=== PATIENT | male | born 1985 | race Caucasian/White ===

== ENCOUNTER 2024-04-12 10:30 | Emergency (ER) | payer MEDICAID, SELFPAY ==
[2024-04-12 10:34] VITALS: BP 148/95; PULSE 73; RESP 20; TEMP 36.6; O2SAT 98
--- NOTE | 2024-04-12 10:42 | W.ED.GENAD ---
Discharge Plan Disposition Patient Disposition: Home Condition: Stable Discharge Details Clinical Impression: Cellulitis of left foot Primary Care Provider: Unknown,Unknown ED Provider: Gio Lao Home Meds and New Rx's Prescriptions: New sulfamethoxazole-trimethoprim 800-160 mg tablet 1 tab PO BID 10 Days Qty: 20 0RF Continued insulin lispro 100 unit/mL insulin pen 1 sliding scale dose subcut USEASDIRECTD Levemir FlexPen 100 unit/mL (3 mL) insulin pen 12 unit subcut QHS Discharge Instructions Instructions: Sulfamethoxazole and Trimethoprim, Cellulitis (Skin Infection), Adult ED Additional Instructions: You were seen in the emergency department for the mild wound infection of your left foot, you have normal vital signs and no red streaking up the leg or signs of spreading infection or abscess at this time. I think a reasonable option is to trial antibiotics have sent Bactrim to your pharmacy in [place] to cover staph as well as MRSA. Please take this as directed, monitor your condition, you should begin to improve significantly by day 3 on antibiotics. Keep the wound covered and clean, take Tylenol and ibuprofen for pain as needed. Please return to the emergency department for increasing signs of infection like increasing redness, swelling, drainage of pus from the area, red streaking up the leg, fever. Discharge Data Discharge Date/Time-TO BE ENTERED AT DEPARTURE: 04/12/24 11:01 HPI General Date/Time Provider Initiated Documentation: 04/12/24 10:42. HPI Narrative: 38 year-old male presents to ED today by POV/ambulating with a chief complaint of concern for wound infection from a scratch from his dog on his L foot- noticed a blackened scab at center of the healing scratch with onset for the past week or so. 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 Severity is described as mild. Palliating factors include nothing specific attempted. Provoking factors include nothing specific. Events leading up to the incident/Associated Symptoms: Patient endorses diabetes. Patient not anticoagulated. Related Data Home Medications ?Medication ?Instructions ?Recorded ?Confirmed insulin detemir U-100 100 unit/mL 12 unit subcut QHS 04/12/24 04/12/24 (3 mL) subcutaneous pen (Levemir FlexPen) insulin lispro 100 unit/mL 1 sliding scale dose subcut 04/12/24 04/12/24 subcutaneous pen USEASDIRECTD sulfamethoxazole 800 1 tab PO BID 10 days #20 tabs 04/12/24 mg-trimethoprim 160 mg tablet Previous Rx's ?Medication ?Instructions ?Recorded sulfamethoxazole 800 1 tab PO BID 10 days #20 tabs 04/12/24 mg-trimethoprim 160 mg tablet Allergies Allergy/AdvReac Type Severity Reaction Status Date / Time No Known Allergies Allergy Unverified 04/12/24 10:39 General Stated Complaint: RashLesion HERO: 4 Review of Systems All systems reviewed & are unremarkable except as noted in HPI and below Exam Narrative Exam Narrative: GENERAL APPEARANCE: Well-nourished, non-toxic, awake and alert, atraumatic, no acute distress. SKIN: Warm, pink, dry, intact, small minor scratch to the dorsum of the left foot with central blackened scab, no lymphadenitis or spreading erythema, has chronic scar tissue to this area from old injury, no large fluctuant swelling HEAD: Normocephalic, atraumatic, normal hair distribution for gender/age. EYES: Normal conjunctiva, no exudates on lids/lashes. ENT: Nares patent, no circumoral cyanosis, no facial swelling NECK: Supple, trachea midline, painless cervical ROM. LUNGS/CHEST: Non-labored respirations, normal A/P diameter, symmetrical expansion, no chest wall deformity HEART (CV/PV): Regular rate, dorsalis pedis and posterior tibialis pulses 2+, brisk capillary refill, no peripheral edema, no JVD. ABDOMEN: Soft, non-distended, no guarding. MSK: Normal ROM, no swelling/deformity to bilateral UEs or LEs, moving all extremities without weakness, no cyanosis, spine midline without tenderness, normal curvature. NEURO: Mental Status AAOx4 - alert to person, place, time, events No facial droop, no forehead involvement. Motor: No focal weakness - strength 5/5 in bilateral UEs and LEs, proximal and distal, symmetric. Sensory: sensation intact to light touch globally. Gait normal: patient ambulated without ataxia into ED room. PSYCH: euthymic, cooperative, pleasant, appropriate speech Course Vital Signs Vital signs: Vital Signs Temperature 36.6 C 04/12/24 10:34 Pulse 73 04/12/24 10:34 Respiratory Rate 20 04/12/24 10:34 Blood Pressure 148/95 H 04/12/24 10:34 Pulse Oximetry 98 04/12/24 10:34 Temperature 36.6 C 04/12/24 10:34 Pulse 73 04/12/24 10:34 Respiratory Rate 20 04/12/24 10:34 Respiratory Effort Normal 04/12/24 10:38 Blood Pressure 148/95 H 04/12/24 10:34 Pulse Oximetry 98 04/12/24 10:34 Medical Decision Making This dictation utilizes [id number] dictation software and may contain unedited grammatical errors. 38 year-old male presents to ED today by POV/ambulating with a chief complaint of concern for wound infection from a scratch from his dog on his L foot- noticed a blackened scab at center of the healing scratch with onset for the past week or so. 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 Severity is described as mild. Palliating factors include nothing specific attempted. Provoking factors include nothing specific. Events leading up to the incident/Associated Symptoms: Patient endorses diabetes. Patients' medical history: Diabetes mellitus. Family and social history: Noncontributory. Pertinent exam findings / vital signs include minor scab to the central dorsal left foot, no spreading erythema or large fluctuant swelling, no lymphadenitis, no purulent drainage, afebrile and nontoxic. Differential / pathologies of concern include healing scratch with some abnormal appearing scab versus mild cellulitis, do not suspect sepsis. Diagnostic studies of: -None. Interventions of: -Outpatient prescription for Bactrim. 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 Findings not consistent with sepsis, abscess. Disposition of Cellulitis of Left Foot. Patient verbalized understanding of the plan and return to ED criteria and engaged in shared decision making. Medical Records Medical records reviewed: Yes I reviewed the patient's medical records. Quality:[facility] Health Related Social Needs: No Data to Display PFSH All Active Problems (Updated 04/12/24 @ 10:53 by ANNA Zavaleta) Cellulitis of left foot (Acute) Social History Smoking risk assessment performed?: No
== END 2024-04-12 11:01 | disposition home or self-care (01) ==
LOC: ER 11:18
PROVIDERS: Emergency Provider Physician Assistant
DX: L03.116 Cellulitis of left lower limb (principal); E11.9 Type 2 diabetes mellitus without complications; Z79.4 Long term (current) use of insulin
CPT/HCPCS: 99283

== ENCOUNTER 2024-06-04 10:33 | Inpatient (IN) | payer MEDICAID, SELFPAY ==
[2024-06-04] VITALS (31 sets, daily range): BP systolic 98–140; BP diastolic 73–96; PULSE 46–115; RESP 14–45; TEMP 36.2–37; O2SAT 96–100
--- NOTE | 2024-06-04 10:45 | DI.RAD_ITS ---
Exam(s) XR PORTABLE CHEST AP EXAM: XR PORTABLE CHEST AP CLINICAL HISTORY: sob TECHNIQUE: 2D digital imaging was performed. COMPARISON: No exams were available for comparison FINDINGS: LUNGS: Clear. No pleural abnormality seen. HEART: Normal size. AORTA: Normal diameter. BONES: Mild scoliosis. Soft tissues: Unremarkable. IMPRESSION: No acute findings. DATA REPOSITORY: RADIATION DOSE DELIVERED:
--- NOTE | 2024-06-04 10:59 | W.ED.GENAD ---
Discharge Plan Disposition Patient Disposition: Admit to [facility] Condition: Fair Discharge Details Chief Complaint: GenMedical Clinical Impression: DKA (diabetic ketoacidosis), COVID, Vomiting Admit Date/Time: 06/04/24 12:12 Admit Provider: Carter Zapata Attending Provider: Carter Zapata Primary Care Provider: Unknown,Unknown ED Provider: Rui Casey [facility] General Date/Time Provider Initiated Documentation: 06/04/24 10:41. Limitations to Documentation: no limitations. Information obtained by: patient and family. HPI Narrative: 38-year-old gentleman with past medical history of diabetes, insulin-dependent, presents for evaluation of vomiting body aches shortness of breath. Reports the symptoms have been ongoing for the last 4 to 5 days. He reports that his dad got sick with similar symptoms and tested positive for COVID. Patient got sick 2 days after his dad. Dad is currently finishing Paxlovid prescription. The patient did not test for COVID. He reports that he has not been able to eat for the last 5 days and has had persistent vomiting. He has not been checking his blood sugar or taking insulin because he is not eating. Reports dry cough, nonproductive. Unknown fever denies any other medical problems Related Data Home Medications ?Medication ?Instructions ?Recorded ?Confirmed insulin detemir U-100 100 unit/mL 12 unit subcut QHS 04/12/24 06/04/24 (3 mL) subcutaneous pen (Levemir FlexPen) insulin lispro 100 unit/mL 1 sliding scale dose subcut 04/12/24 06/04/24 subcutaneous pen USEASDIRECTD Allergies Allergy/AdvReac Type Severity Reaction Status Date / Time No Known Allergies Allergy Unverified 06/04/24 10:43 General Stated Complaint: GenMedical HERO: 3 Exam Narrative Exam Narrative: Review of Systems: All systems reviewed & are unremarkable except as noted in HPI and below Cachectic Tachycardic Mild tachypnea, clear breath sounds bilaterally, no hypoxia Nondistended abdomen soft nontender Extremities w/o edema Course Vital Signs Vital signs: Vital Signs Temperature 36.2 C L 06/04/24 10:38 Pulse 115 H 06/04/24 10:38 Respiratory Rate 18 06/04/24 10:38 Blood Pressure 140/89 06/04/24 10:38 Pulse Oximetry 97 06/04/24 10:38 Temperature 36.2 C L 06/04/24 10:38 Pulse 115 H 06/04/24 10:38 Respiratory Rate 18 06/04/24 10:38 Respiratory Effort Normal, Non-Labored, Short of Breath 06/04/24 10:41 Blood Pressure 140/89 06/04/24 10:38 Blood Pressure Position Sitting 06/04/24 10:38 Pulse Oximetry 97 06/04/24 10:38 Oxygen Delivery Method Room Air 06/04/24 10:38 Oxygen Flow Rate 0 06/04/24 10:38 Pain Level 2 06/04/24 10:38 Medical Decision Making Emergent evaluation of multiple sick symptoms. He is a very unwell appearing person. Initial differential includes COVID, DKA, pneumonia. Although the patient is tachypneic, I am more concerned this might be [place] versus having a respiratory infection. His dad is positive for COVID, we will run a COVID test today for the patient. Will check lab work, electrolytes, give IV fluids and monitor closely. Lab work reviewed. No leukocytosis or anemia. Significant electrolyte derangement concerning for DKA. pH is 7.02. There is an anion gap of 28. CO2 is 9. Patient is hyperglycemic. He has been given 1 L of IV fluids. His potassium is on the higher side. Will start insulin infusion. COVID test is positive. Chest x-ray reviewed and independently interpreted: No consolidative process. Patient will be admitted to the hospital for management of severe DKA Quality:[facility] Health Related Social Needs: No Data to Display Critical Care Time Critical Care Time Critical Care Time: Yes Total Critical Care Time: 36 Attestation: CRITICAL CARE Upon my evaluation, this patient had a high probability of imminent or life-threatening deterioration due to diabetic ketoacidosis which required my direct attention, intervention, and personal management. I have personally provided 36 minutes of critical care time exclusive of time spent on separately billable procedures. Time includes review of laboratory data, radiology results, discussion with consultants, and monitoring for potential decompensation. Interventions were performed as documented above [facility] All Active Problems (Updated 06/04/24 @ 13:45 by Rui Casey MD) Vomiting (Acute) COVID (Acute) DKA (diabetic ketoacidosis) (Acute) Social History Smoking/Tobacco Use Status: Never Smoking risk assessment performed?: Yes Alcohol Intake: never Drug use: Socially Substance use type: marijuana Housing: house Do you feel safe at home: Yes Do you feel safe in your relationship?: Yes
[2024-06-04 11:15] LABS: BE (Venous) -24 mmol/L (-2-3); HCO3 (Venous) 7 mmol/L (23-28); O2 Sat (Venous) 85 %; TCO2 (Venous) 7 mmol/L (24-29); pCO2 (Venous) 27 mmHg (41-51); pO2 (Venous) 57 mmHg
[2024-06-04 11:16] LABS: pH (Venous) 7.02 (7.31-7.41)
[2024-06-04 11:17] LABS: Abs Immature Grans 0.03 10^3/uL (0.0-0.06); Absolute Basophil Count 0.04 10^3/uL (0.0-0.2); Absolute Lymphocyte Count 1.12 10^3/uL (1.2-3.4); Absolute Monocyte Count 0.36 10^3/uL (0.1-0.8); Absolute Neutrophil Count 4.06 10^3/uL (1.2-6.7); Basophils % 0.7 %; HCT 54.6 % (40.0-50.0); HGB 17.4 g/dL (13.5-17.5); Immature Grans % 0.5 %; MCH 29.7 pg (27.0-33.0); MCHC 31.9 % (32.0-36.0); MCV 93 fL (80-95); MPV 10.7 fL (8.0-11.0); Monocytes % 6.4 %; Neutrophils % 72.4 %; Platelet Count 174 10^3/uL (130-400); RBC 5.86 10^6/uL (4.36-5.78); RDW-SD 41.9 fL; WBC 5.61 10^3/uL (4.4-10.8)
[2024-06-04] MEDS: Ondansetron 4 MG/2 ML VIAL IVP (11:20)
[2024-06-04] MEDS: Normal Saline 1,000 ML 1000 ML IV (11:21)
[2024-06-04 11:56] LABS: ALT 75 U/L (16-63); AST 29 U/L (15-37); Albumin 4.3 g/dL (3.4-5.0); Alkaline Phosphatase 89 U/L (46-116); BUN 26 mg/dL (7-18); Bilirubin, Total 0.37 mg/dL (0.2-1.0); CREATININE 1.7 mg/dL (0.70-1.30); Chloride 97 mmol/L (98-107); Estimated GFR 52.59 (mL/min/1.73m2); Glucose 479 mg/dL (74-106); Lipase 10 U/L (<78); Magnesium 1.8 mg/dL (1.8-2.4); Potassium 5.2 mmol/L (3.5-5.1); Sodium 134 mmol/L (136-145); Total Protein 8.4 g/dL (6.4-8.2)
--- NOTE | 2024-06-04 12:13 | HPE_ITS ---
Date of service: 06/04/24 Time of Service: 12:13 Assessment and Plan Assessment and plan (1) DKA (diabetic ketoacidosis): Status: Acute Assessment and plan: - Secondary to COVID gastritis with poor p.o. intake, vomiting and not using his insulin -Initial blood glucose above 470 with an anion gap of 26 -Started on DKA protocol with initial fluids of normal saline at 125 mL an hour; will change to potassium containing and or glucose containing fluids based on improvement and anion gap, potassium and glucose levels -Once patient's anion gap is closed we will initiate long-acting insulin bolus 1 hour prior to discontinuing insulin drip (2) COVID: Status: Acute Assessment and plan: - Tested positive on admission on 06/04/2024 -While patient is short of breath he is not hypoxic therefore does not meet criteria for inpatient treatment at this time -Continue to monitor patient's oxygen requirements, and will initiate treatment if needed History of Present Illness History of Present Illness Chief Complaint: body aches, SOB Narrative: 38-year-old male with a past medical history of late onset type 1 diabetes who presents emergency department complaints of vomiting, body aches and shortness of breath. Patient states that he has had bodyaches and worsening shortness of breath over the last 4 to 5 days, and that his stepfather was diagnosed with COVID about 5 days ago. Since that time, patient states he has also had significant decrease in p.o. intake due to persistent vomiting he has not been checking his blood sugars or taking his insulin because he was not eating. He reports having a dry cough that has been nonproductive, but denies any fever, headache, lightheadedness, dizziness, chest pain, diarrhea or constipation. In the emergency department the patient was noted as being tachycardic with otherwise normal vital signs. He had CBC that was within normal limits but CMP showed an initial blood glucose level of 479 with an anion gap of 26, and a VBG that showed a pH of 7.02, pCO2 of 27. Additionally, patient tested positive for COVID-19. Patient was started on a DKA protocol and emergency room physician paged hospitalist for admission for patient with COVID-19 resulting in viral gastritis leading to poor p.o. intake, and ultimately DKA. Review of Systems All systems reviewed & are unremarkable except as noted in HPI and below PFSH All Active Problems (Updated 06/04/24 @ 13:45 by Rui Casey MD) Vomiting (Acute) COVID (Acute) DKA (diabetic ketoacidosis) (Acute) Social History Smoking/Tobacco Use Status: Never Smoking risk assessment performed?: Yes Alcohol Intake: never Drug use: Socially Substance use type: marijuana Housing: house Do you feel safe at home: Yes Do you feel safe in your relationship?: Yes Meds Allergies and Home Medications Allergies Allergy/AdvReac Type Severity Reaction Status Date / Time No Known Allergies Allergy Unverified 06/04/24 10:43 Home Medications ?Medication ?Instructions ?Recorded ?Confirmed ?Type insulin detemir U-100 100 unit/mL 12 unit subcut QHS 04/12/24 06/04/24 History (3 mL) subcutaneous pen (Levemir FlexPen) insulin lispro 100 unit/mL 1 sliding scale dose subcut 04/12/24 06/04/24 History subcutaneous pen USEASDIRECTD Exam Narrative Exam Narrative: Well-appearing young gentleman laying in bed in no acute distress, ANO x 4, heart regular rhythm though intermittently tachycardic, lungs clear to auscultation bilaterally, abdomen soft, nontender, nondistended Results Labs 06/04/24 11:07 06/04/24 14:18 Labs: Laboratory Results - last 24 hr 06/04/24 06/04/24 06/04/24 11:07 11:10 11:27 WBC 5.61 RBC 5.86 H Hgb 17.4 Hct 54.6 H MCV 93 MCH 29.7 MCHC 31.9 L RDW 12.0 Plt Count 174 MPV 10.7 Immature Gran % 0.5 Neutrophils % 72.4 Lymphocytes % 20.0 Monocytes % 6.4 Eosinophils % 0.0 Basophils % 0.7 Nucleated RBC % 0.0 Absolute Neutrophils 4.06 Absolute Lymphocytes 1.12 L Absolute Monocytes 0.36 Absolute Eosinophils 0.00 Absolute Basophils 0.04 VBG pH 7.02 L* VBG pCO2 27 L VBG pO2 57 VBG HCO3 7 L VBG Total CO2 7 L VBG O2 Saturation 85 VBG Base Excess -24 L Sodium Cancelled 134 L Potassium Cancelled 5.2 H Chloride Cancelled 97 L Carbon Dioxide Cancelled 9.0 L Anion Gap Cancelled 28.0 H BUN Cancelled 26 H Creatinine Cancelled 1.7 H Est GFR (CKD-EPI 2020) Cancelled 52.59 Glucose Cancelled 479 H Calcium Cancelled Magnesium Cancelled 1.8 Total Bilirubin Cancelled 0.37 AST Cancelled 29 ALT Cancelled 75 H Alkaline Phosphatase Cancelled 89 Total Protein Cancelled 8.4 H Albumin Cancelled 4.3 Lipase Cancelled 10 Last Vital Signs Temp 98 F 06/04/24 11:43 Pulse 58 L 06/04/24 12:01 Resp 19 06/04/24 12:01 BP 124/78 06/04/24 12:01 Pulse Ox 100 06/04/24 12:01 Time Spent Time spent with Patient: >75 minutes Time was spent: preparing to see the patient(eg.review tests), obtaining and/or reviewing separately otained hiistory, ordering medications,tests, procedures, referring, communicating with other health intensive care unit nurse, indepentently interpreting results, counseling the patient and care coordination
[2024-06-04 12:17] LABS: Calcium 9.5 mg/dL (8.5-10.1)
[2024-06-04] MEDS: INSULIN REGULAR IN 0.9 % NACL 100 UNIT/100 ML BAG 6 UNIT IVINF (12:26)
[2024-06-04 12:36] LABS: Bilirubin Negative (Negative); Blood Trace-intact (Negative); Clarity Clear (Clear); Glucose 500 mg/dL (Negative); Ketones >=160 mg/dL (Negative); Leukocyte Esterase Negative (Negative); Nitrite Negative (Negative); Specific Gravity >= 1.030 (1.005-1.025); Urobilinogen 0.2 mg/dL (Up to 0.2); pH 5.5 (5-8)
--- NOTE | 2024-06-04 12:40 | W.PC.ACHO ---
Registration Status: Primary Language: Preferred Language: ED Information & Data Chief Complaint GenMedical 06/04/24 11:04 Triage Note patient here with covid, 06/04/24 10:38 family member just getting done with it and is on paxlovid. patient's sx are as follows - SOB, fever, chills, n/v/d, fatigue, achy body. Needs PCP. Doesn't really have a cough. Unsure if type 1 or 2 IDDM - has dynamometer tester trying to figure it out. Most Recent Vital Signs Temperature 36.6 C 06/04/24 11:43 Temperature Source Oral 06/04/24 11:43 Pulse 58 L 06/04/24 12:01 Pulse 63 06/04/24 12:01 Respiratory Rate 19 06/04/24 12:01 Respiratory Effort Non-Labored 06/04/24 11:41 Respiratory Depth Shallow 06/04/24 11:41 Respiratory Pattern Tachypnea 06/04/24 11:41 Blood Pressure 124/78 06/04/24 12:01 Blood Pressure Mean 91 06/04/24 12:01 Blood Pressure Position Sitting 06/04/24 10:38 Pulse Oximetry 100 06/04/24 12:01 Oxygen Delivery Method Room Air 06/04/24 10:38 Oxygen Flow Rate 0 06/04/24 10:38 Pain Level 2 06/04/24 10:38 Allergies No Known Allergies Allergy (Unverified 06/04/24 10:43) Precautions Isolation PUI 06/04/24 10:41 Active Medications Generic Name Dose Route Start Last Admin Trade Name Freq PRN Reason Stop Dose Admin Insulin Human Regular 100 unit in 100 mls @ 6 mls/hr 06/04/24 12:15 06/04/24 12:26 Myxredlin IVINF 6 unit/hr INFUSION MARIA EUGENIA 6 mls/hr Administration Protocol 6 UNIT/HR IV IV Catheter Type [Right Saline Lock Antecubital] IV Catheter Gauge [Right 20 Antecubital] Diagnostics 06/04/24 06/04/24 06/04/24 Range/Units 22:15 20:15 18:15 WBC (4.4-10.8) 10^3/uL RBC (4.36-5.78) 10^6/uL Hgb (13.5-17.5) g/dL Hct (40.0-50.0) % MCV (80-95) fL MCH (27.0-33.0) pg MCHC (32.0-36.0) % RDW (11.8-14.1) % Plt Count (130-400) 10^3/uL MPV (8.0-11.0) fL Immature Gran % % Neutrophils % % Lymphocytes % % Monocytes % % Eosinophils % % Basophils % % Nucleated RBC % (0.0-0.3) % Absolute Neutrophils (1.2-6.7) 10^3/uL Absolute Lymphocytes (1.2-3.4) 10^3/uL Absolute Monocytes (0.1-0.8) 10^3/uL Absolute Eosinophils (0.0-0.7) 10^3/uL Absolute Basophils (0.0-0.2) 10^3/uL VBG pH (7.31-7.41) VBG pCO2 (41-51) mmHg VBG pO2 mmHg VBG HCO3 (23-28) mmol/L VBG Total CO2 (24-29) mmol/L VBG O2 Saturation % VBG Base Excess (-2-3) mmol/L Sodium Pending Pending Pending Potassium Pending Pending Pending Chloride Pending Pending Pending Carbon Dioxide Pending Pending Pending Anion Gap Pending Pending Pending BUN Pending Pending Pending Creatinine Pending Pending Pending Est GFR (CKD-EPI 2020) Pending Pending Pending Glucose Pending Pending Pending Calcium Pending Pending Pending Magnesium Total Bilirubin AST ALT Alkaline Phosphatase Total Protein Albumin Lipase Urine Color Urine Clarity Urine pH Ur Specific [place] Urine Protein Urine Ketones Urine Blood Urine Nitrite Urine Bilirubin Urine Urobilinogen Ur Leukocyte Esterase Urine Glucose 06/04/24 06/04/24 06/04/24 Range/Units 16:15 14:15 12:20 WBC (4.4-10.8) 10^3/uL RBC (4.36-5.78) 10^6/uL Hgb (13.5-17.5) g/dL Hct (40.0-50.0) % MCV (80-95) fL MCH (27.0-33.0) pg MCHC (32.0-36.0) % RDW (11.8-14.1) % Plt Count (130-400) 10^3/uL MPV (8.0-11.0) fL Immature Gran % % Neutrophils % % Lymphocytes % % Monocytes % % Eosinophils % % Basophils % % Nucleated RBC % (0.0-0.3) % Absolute Neutrophils (1.2-6.7) 10^3/uL Absolute Lymphocytes (1.2-3.4) 10^3/uL Absolute Monocytes (0.1-0.8) 10^3/uL Absolute Eosinophils (0.0-0.7) 10^3/uL Absolute Basophils (0.0-0.2) 10^3/uL VBG pH (7.31-7.41) VBG pCO2 (41-51) mmHg VBG pO2 mmHg VBG HCO3 (23-28) mmol/L VBG Total CO2 (24-29) mmol/L VBG O2 Saturation % VBG Base Excess (-2-3) mmol/L Sodium Pending Pending Potassium Pending Pending Chloride Pending Pending Carbon Dioxide Pending Pending Anion Gap Pending Pending BUN Pending Pending Creatinine Pending Pending Est GFR (CKD-EPI 2020) Pending Pending Glucose Pending Pending Calcium Pending Pending Magnesium Total Bilirubin AST ALT Alkaline Phosphatase Total Protein Albumin Lipase Urine Color Pending Urine Clarity Pending Urine pH Pending Ur Specific [place] Pending Urine Protein Pending Urine Ketones Pending Urine Blood Pending Urine Nitrite Pending Urine Bilirubin Pending Urine Urobilinogen Pending Ur Leukocyte Esterase Pending Urine Glucose Pending 06/04/24 06/04/24 06/04/24 Range/Units 12:15 11:27 11:10 WBC (4.4-10.8) 10^3/uL RBC (4.36-5.78) 10^6/uL Hgb (13.5-17.5) g/dL Hct (40.0-50.0) % MCV (80-95) fL MCH (27.0-33.0) pg MCHC (32.0-36.0) % RDW (11.8-14.1) % Plt Count (130-400) 10^3/uL MPV (8.0-11.0) fL Immature Gran % % Neutrophils % % Lymphocytes % % Monocytes % % Eosinophils % % Basophils % % Nucleated RBC % (0.0-0.3) % Absolute Neutrophils (1.2-6.7) 10^3/uL Absolute Lymphocytes (1.2-3.4) 10^3/uL Absolute Monocytes (0.1-0.8) 10^3/uL Absolute Eosinophils (0.0-0.7) 10^3/uL Absolute Basophils (0.0-0.2) 10^3/uL VBG pH 7.02 L* (7.31-7.41) VBG pCO2 27 L (41-51) mmHg VBG pO2 57 mmHg VBG HCO3 7 L (23-28) mmol/L VBG Total CO2 7 L (24-29) mmol/L VBG O2 Saturation 85 % VBG Base Excess -24 L (-2-3) mmol/L Sodium Pending 134 L Cancelled Potassium Pending 5.2 H Cancelled Chloride Pending 97 L Cancelled Carbon Dioxide Pending 9.0 L Cancelled Anion Gap Pending 28.0 H Cancelled BUN Pending 26 H Cancelled Creatinine Pending 1.7 H Cancelled Est GFR (CKD-EPI 2020) Pending 52.59 Cancelled Glucose Pending 479 H Cancelled Calcium Pending 9.5 Cancelled Magnesium 1.8 Cancelled Total Bilirubin 0.37 Cancelled AST 29 Cancelled ALT 75 H Cancelled Alkaline Phosphatase 89 Cancelled Total Protein 8.4 H Cancelled Albumin 4.3 Cancelled Lipase 10 Cancelled Urine Color Urine Clarity Urine pH Ur Specific [place] Urine Protein Urine Ketones Urine Blood Urine Nitrite Urine Bilirubin Urine Urobilinogen Ur Leukocyte Esterase Urine Glucose 06/04/24 Range/Units 11:07 WBC 5.61 (4.4-10.8) 10^3/uL RBC 5.86 H (4.36-5.78) 10^6/uL Hgb 17.4 (13.5-17.5) g/dL Hct 54.6 H (40.0-50.0) % MCV 93 (80-95) fL MCH 29.7 (27.0-33.0) pg MCHC 31.9 L (32.0-36.0) % RDW 12.0 (11.8-14.1) % Plt Count 174 (130-400) 10^3/uL MPV 10.7 (8.0-11.0) fL Immature Gran % 0.5 % Neutrophils % 72.4 % Lymphocytes % 20.0 % Monocytes % 6.4 % Eosinophils % 0.0 % Basophils % 0.7 % Nucleated RBC % 0.0 (0.0-0.3) % Absolute Neutrophils 4.06 (1.2-6.7) 10^3/uL Absolute Lymphocytes 1.12 L (1.2-3.4) 10^3/uL Absolute Monocytes 0.36 (0.1-0.8) 10^3/uL Absolute Eosinophils 0.00 (0.0-0.7) 10^3/uL Absolute Basophils 0.04 (0.0-0.2) 10^3/uL VBG pH (7.31-7.41) VBG pCO2 (41-51) mmHg VBG pO2 mmHg VBG HCO3 (23-28) mmol/L VBG Total CO2 (24-29) mmol/L VBG O2 Saturation % VBG Base Excess (-2-3) mmol/L Sodium Potassium Chloride Carbon Dioxide Anion Gap BUN Creatinine Est GFR (CKD-EPI 2020) Glucose Calcium Magnesium Total Bilirubin AST ALT Alkaline Phosphatase Total Protein Albumin Lipase Urine Color Urine Clarity Urine pH Ur Specific [place] Urine Protein Urine Ketones Urine Blood Urine Nitrite Urine Bilirubin Urine Urobilinogen Ur Leukocyte Esterase Urine Glucose [id number] Documentation Fingerstick Glucose Start: 06/04/24 10:51 Freq: .Stat Status: Active Protocol: Activity Type Activity Date Activity User E-sign Co-sign Detail Recorded Client Recorded Date Recorded By Document 06/04/24 11:34 BKG DAEMON(3) [id number] 06/04/24 11:35 BKG DAEMON(4) Intake and Output - 24 Hour Total 06/04/24 10:33 thru 06/04/24 12:27 Intake Total 1010 Balance 1010 Weight 58.967 kg Intake: IV 1010 Falls Risk Assessment History of Falls No History 06/04/24 10:41 Contributing Factors No Factors 06/04/24 10:41 Ambulatory Aids Independent 06/04/24 10:41 Tubes/Lines None 06/04/24 10:41 Gait Evaluation No gait disturbance 06/04/24 10:41 Cognition No cognitive impairment 06/04/24 10:41 Fall Total Score 0 06/04/24 10:41 Level of Risk Standard/Low Risk 06/04/24 10:41 v v v v v v v v v Sending and/or Receiving Nurses: Please use comment section below to note any information pertinent to the patient hand-off not included above. Information / Comments: Report received from: AUSTIN Tenorio
[2024-06-04 13:12] LABS: Bacteria Negative HPF (Negative); C & S Indicated? No; Casts Negative LPF (Negative); Crystals Negative HPF (Negative); Epithelial Cells Negative HPF (Negative); Mucus Negative (Negative); Other Cells Negative (Negative); RBC 0-2 HPF (0-2); WBC Negative HPF (0-5)
[2024-06-04 13:48] LABS: Anion Gap 24.2 mmol/L (3-11); BUN 26 mg/dL (7-18); CO2 10.8 mmol/L (21.0-32.0); CREATININE 1.6 mg/dL (0.70-1.30); Calcium 8.7 mg/dL (8.5-10.1); Chloride 100 mmol/L (98-107); Estimated GFR 56.56 (mL/min/1.73m2); Glucose 397 mg/dL (74-106); Potassium 4.8 mmol/L (3.5-5.1); Sodium 135 mmol/L (136-145)
[2024-06-04 14:15] LABS: *AMPHETAMINES SCREEN URINE Negative (Negative); *BARBITURATES SCREEN URINE Negative (Negative); *BENZODIAZEPINES SCREEN URINE Negative (Negative); Cocaine Screen,Urine Negative (Negative); METHADONE URINE SCREEN Negative (Negative)
[2024-06-04] MEDS: Normal Saline 1,000 ML 125 ML IV (14:21)
[2024-06-04 14:24] LABS: Cannabinoids THC Positive (Negative); OPIATES URINE SCREEN Negative (Negative); Tricyclic Antidepressants Negative (Negative)
[2024-06-04 14:40] LABS: Anion Gap 20.4 mmol/L (3-11); BUN 26 mg/dL (7-18); CO2 13.6 mmol/L (21.0-32.0); CREATININE 1.5 mg/dL (0.70-1.30); Calcium 8.9 mg/dL (8.5-10.1); Chloride 101 mmol/L (98-107); Estimated GFR 61.11 (mL/min/1.73m2); Glucose 346 mg/dL (74-106); Potassium 4.8 mmol/L (3.5-5.1); Sodium 135 mmol/L (136-145)
[2024-06-04 16:49] LABS: Anion Gap 16.2 mmol/L (3-11); BUN 23 mg/dL (7-18); CO2 16.8 mmol/L (21.0-32.0); CREATININE 1.3 mg/dL (0.70-1.30); Calcium 8.4 mg/dL (8.5-10.1); Chloride 103 mmol/L (98-107); Estimated GFR 72.56 (mL/min/1.73m2); Glucose 278 mg/dL (74-106); Potassium 4.8 mmol/L (3.5-5.1); Sodium 136 mmol/L (136-145)
[2024-06-04 18:17] LABS: BUN 21 mg/dL (7-18); CREATININE 1.4 mg/dL (0.70-1.30); Calcium 8.6 mg/dL (8.5-10.1); Chloride 104 mmol/L (98-107); Estimated GFR 66.39 (mL/min/1.73m2); Glucose 212 mg/dL (74-106); Potassium 4.1 mmol/L (3.5-5.1); Sodium 135 mmol/L (136-145)
[2024-06-04] MEDS: Normal Saline Flush 10 ML SYR IVP (20:11)
[2024-06-04] MEDS: DEXTROSE 5%-0.9% SALINE 1,000 ML 125 ML IV (20:11)
[2024-06-04] MEDS: MAGNESIUM SULFATE 2 GM/50 ML BAG IV_INF (20:11)
[2024-06-04 20:33] LABS: Anion Gap 10.3 mmol/L (3-11); BUN 21 mg/dL (7-18); CO2 20.7 mmol/L (21.0-32.0); CREATININE 1.3 mg/dL (0.70-1.30); Calcium 8.7 mg/dL (8.5-10.1); Chloride 105 mmol/L (98-107); Estimated GFR 72.56 (mL/min/1.73m2); Glucose 151 mg/dL (74-106); Potassium 4.4 mmol/L (3.5-5.1); Sodium 136 mmol/L (136-145)
[2024-06-04 22:35] LABS: Anion Gap 10.4 mmol/L (3-11); BUN 19 mg/dL (7-18); CO2 19.6 mmol/L (21.0-32.0); CREATININE 1.2 mg/dL (0.70-1.30); Calcium 8.4 mg/dL (8.5-10.1); Chloride 108 mmol/L (98-107); Estimated GFR 79.88 (mL/min/1.73m2); Glucose 147 mg/dL (74-106); Potassium 3.7 mmol/L (3.5-5.1); Sodium 138 mmol/L (136-145)
[2024-06-05] VITALS (15 sets, daily range): BP systolic 99–108; BP diastolic 68–80; PULSE 56–85; RESP 9–24; TEMP 37–37.5; O2SAT 96–100
[2024-06-05 00:46] LABS: Anion Gap 8.1 mmol/L (3-11); BUN 19 mg/dL (7-18); CO2 20.9 mmol/L (21.0-32.0); CREATININE 1.2 mg/dL (0.70-1.30); Calcium 8.2 mg/dL (8.5-10.1); Chloride 109 mmol/L (98-107); Estimated GFR 79.88 (mL/min/1.73m2); Glucose 103 mg/dL (74-106); Potassium 3.5 mmol/L (3.5-5.1); Sodium 138 mmol/L (136-145)
[2024-06-05] MEDS: POTASSIUM CHLORIDE 20 MEQ/100 ML BAG 50 MEQ IV_INF (01:55)
[2024-06-05] MEDS: Dextrose 50%-Water 25 GM/50 ML SYR ×2 (02:08→02:14)
[2024-06-05 02:37] LABS: Anion Gap 8.8 mmol/L (3-11); BUN 18 mg/dL (7-18); CO2 21.2 mmol/L (21.0-32.0); CREATININE 1.2 mg/dL (0.70-1.30); Calcium 8.3 mg/dL (8.5-10.1); Chloride 110 mmol/L (98-107); Estimated GFR 79.88 (mL/min/1.73m2); Glucose 74 mg/dL (74-106); Potassium 3.4 mmol/L (3.5-5.1); Sodium 140 mmol/L (136-145)
[2024-06-05] MEDS: DEXTROSE 5%-0.9% SALINE 1,000 ML 250 ML IV (03:42)
[2024-06-05 04:32] LABS: Anion Gap 8.9 mmol/L (3-11); BUN 18 mg/dL (7-18); CO2 21.1 mmol/L (21.0-32.0); CREATININE 1.2 mg/dL (0.70-1.30); Calcium 8.3 mg/dL (8.5-10.1); Chloride 108 mmol/L (98-107); Estimated GFR 79.88 (mL/min/1.73m2); Glucose 201 mg/dL (74-106); Potassium 4.4 mmol/L (3.5-5.1); Sodium 138 mmol/L (136-145)
[2024-06-05 06:24] LABS: BE (Venous) -7 mmol/L (-2-3); HCO3 (Venous) 19 mmol/L (23-28); O2 Sat (Venous) 99 %; TCO2 (Venous) 18 mmol/L (24-29); pCO2 (Venous) 36 mmHg (41-51); pH (Venous) 7.33 (7.31-7.41); pO2 (Venous) 99 mmHg
[2024-06-05 06:38] LABS: Anion Gap 10.6 mmol/L (3-11); BUN 16 mg/dL (7-18); CO2 20.4 mmol/L (21.0-32.0); CREATININE 1.1 mg/dL (0.70-1.30); Calcium 8.2 mg/dL (8.5-10.1); Chloride 109 mmol/L (98-107); Estimated GFR 88.67 (mL/min/1.73m2); Glucose 221 mg/dL (74-106); Potassium 3.5 mmol/L (3.5-5.1); Sodium 140 mmol/L (136-145)
[2024-06-05] MEDS: Insulin Aspart 300 UNITS/3 ML PEN SC ×3 (08:56→17:30)
--- NOTE | 2024-06-05 08:56 | INITIAL_ITS ---
Date of service: 06/05/24 Time of Service: 08:56 Care Management Initial Assmt Initial Assessment Reason for Hospitalization: DKA Functional Status/Living Situation Patient Presentation: CM did not meet with Jam due to covid restrictions. CM spoke to his primary RN who stated that he is doing well and may be ready for discharge today, per MD. Jam does not have a local PCP currently, as he moved to the area recently. CM will coordinate a hospital follow up appointment with the provider who was order control clerk blood bank when he arrived at the ED, which is in the practice of [facility] (Dr. Pedroza). Per report, he is independent at baseline. CM will continue to follow. Town of Residence: [place] Resides with: Parent Significant Other/Family: [facility] Employment Status: Employed Instrumental Activities of Daily Living (ADLs): Independent Medications Medication Management: No Issues/Barriers identified Advance Directives Advance Directives: Do you have an Advance Directive: N 06/04/24 12:46 AD On File at [facility]: N 06/04/24 10:37 Date Asked 06/04/24 06/04/24 10:37 AD Date Reviewed COLST On File at [facility] COLST Date Scanned Code Status Resuscitation Status Full Code Insurance Coverage/Financial Issues Insurance: [facility] Care Team Visit Care Team Role Provider Type Unknown Unknown Primary Care Provider STAFF PHYSICIAN Rui Casey MD Emergency Provider [facility] STAFF PHYSICIAN Carter Zapata MD Admit Provider [facility] STAFF PHYSICIAN Attending Provider Discharge Potential Discharge Needs: PCP F/U Appt Anticipated Barriers to Discharge: None Identified Patient/Family Education Needs: Review discharge instructions, discuss Ask Me Three Transportation: Private vehicle Plan: Anticipate Jam will return home once medically cleared. He will transport via private vehicle by family. He will follow up with his PCP and discharge plan of care. CM will continue to follow. PFSH All Active Problems (Updated 06/04/24 @ 13:45 by Rui Casey MD) Vomiting (Acute) COVID (Acute) DKA (diabetic ketoacidosis) (Acute) Social History Smoking/Tobacco Use Status: Never Smoking risk assessment performed?: Yes Alcohol Intake: never Drug use: Socially Substance use type: marijuana Housing: house Do you feel safe at home: Yes Do you feel safe in your relationship?: Yes SDOH(Care Management) Screening Will the Patient Participate in the Screening?: Yes Do you worry about having a steady place to live?: no Problems where you live: no known problems In the past 12 months, have you had to go without electric, gas, oil or water in your home?: no Have you or anyone in your house had to go without enough food to eat?: no Has lack of transportation kept you from medical appointments or from doing things needed for daily living?: no Has anyone in your support network made you feel unsafe for any reason?: no
[2024-06-05] MEDS: Normal Saline Flush 10 ML SYR IVP ×2 (08:57→19:33)
[2024-06-05] MEDS: Enoxaparin 40 MG/0.4 ML SYR SC (08:57)
[2024-06-05] MEDS: Insulin Aspart 300 UNITS/3 ML PEN 6 UNITS SC (11:07)
[2024-06-05] MEDS: Loperamide 2 MG CAP PO (11:08)
--- NOTE | 2024-06-05 11:30 | PHA.REVIEW2 ---
Pharmacy Admission Review Admission Clinical Review Admission Pharmacy Review: (Updated 06/04/24 @ 13:45 by Rui Casey MD) Vomiting (Acute) COVID (Acute) DKA (diabetic ketoacidosis) (Acute) No Known Allergies Allergy (Unverified 06/04/24 10:43) Resuscitation Status Full Code Height 5 ft 11 in Weight 52.8 kg Pharmacy Admission Review Renal Dosing Renal Dosing: BUN Cancelled 06/05/24 22:15 Creatinine Cancelled 06/05/24 22:15 Medications needing adjustments: Reviewed (crcl = 68, no adjustments needed) Anticoagulation Anticoagulation: Hgb 17.4 g/dL (13.5-17.5) 06/04/24 11:07 Hct 54.6 % (40.0-50.0) H 06/04/24 11:07 Plt Count 174 10^3/uL (130-400) 06/04/24 11:07 Creatinine Cancelled 06/05/24 22:15 DVT Prophylaxis: Reviewed Medications: Enoxaparin (40 mg daily) Therapeutic Anticoagulation: N/A Opiate Usage Evaluate Pain Scale/Pains Meds: Reviewed (not on opiates) Relevant Labs Relevant Labs: Sodium Cancelled 06/05/24 22:15 Potassium Cancelled 06/05/24 22:15 Chloride Cancelled 06/05/24 22:15 Magnesium 2.0 mg/dL (1.8-2.4) 06/05/24 06:13 Electrolytes, C-Reactive P, ESR: Reviewed (labs from this am: Na = 140, K+ = 3.5, Cl = 109, anion gap = 10.6, glucose = 221 (finger stick @ 1107 = 381)) DM Control DM Control: Reviewed Insulin Dosing, Diabetic Medication: *DKA* insulin drip now dc'd. 6 units insulin detemir given this am (one time order) + insulin aspart SS w/meals started (1 unit given @0856, additional 6 units given @1107). No external Rx fill history to review to confirm home regimen but insulin detemir 12 units HS + insulin aspart SS as directed are listed on home med list Cardiac Review BP, HR, EF%: Reviewed (WNL. not on cardiac medications) QTc Review QTc: Not Reviewed (no EKG to review) IV to PO Switch IV Medications: Reviewed (IV insulin drip now dc'd, subq insulin started. other meds PO) Home Meds Home Med List reviewed: Not Reviewed (no external fill hx to confirm list) Current Meds Current Medication Order Review: Reviewed Pharmacy Antibiotic Review Comments: COVID positive, does not currently meet criteria for inpatient treatment
[2024-06-05] MEDS: Lidocaine 2% Jelly 6 ML SYR (11:45)
[2024-06-05] MEDS: Acetaminophen 325 MG TAB PO ×2 (14:26→19:32)
--- NOTE | 2024-06-05 16:22 | W.PM.PROGNOT ---
Date of Service Date of service: 06/05/24 Time of Service: 16:22 Assessment and Plan Assessment and plan (1) DKA (diabetic ketoacidosis): Status: Acute Assessment and plan: - Secondary to COVID gastritis with poor p.o. intake, vomiting and not using his insulin -Initial blood glucose above 470 with an anion gap of 26 -Started on DKA protocol with initial fluids of normal saline at 125 mL an hour -gap closed PM 06/04; given 6units lantus AM 06/05 and covering with sliding scale -restarting home 12 units lantus PM 06/05 (2) COVID: Status: Acute Assessment and plan: - Tested positive on admission on 06/04/2024 -While patient is short of breath he is not hypoxic therefore does not meet criteria for inpatient treatment at this time -Continue to monitor patient's oxygen requirements, and will initiate treatment if needed Subjective Subjective Interval history since last seen: Patient states that he is feeling better but that he was having increased diarrhea and blood sugar levels earlier in the morning. He agrees with the plan to stay an additional night to monitor his blood sugar levels. Exam Narrative Exam Narrative: Well-appearing young gentleman laying in bed in no acute distress, ANO x 4, heart regular rhythm though intermittently tachycardic, lungs clear to auscultation bilaterally, abdomen soft, nontender, nondistended Objective Last Vital Signs Temp 98.6 F 06/05/24 00:11 Pulse 70 06/05/24 14:19 Resp 9 L 06/05/24 14:19 BP 106/70 06/05/24 14:19 Pulse Ox 97 06/05/24 14:19 Laboratory Results - last 24 hr 06/04/24 06/04/24 06/04/24 16:00 18:00 20:14 VBG pH VBG pCO2 VBG pO2 VBG HCO3 VBG Total CO2 VBG O2 Saturation VBG Base Excess Sodium 136 135 L 136 Potassium 4.8 4.1 4.4 Chloride 103 104 105 Carbon Dioxide 16.8 L 19.0 L 20.7 L Anion Gap 16.2 H 12.0 H 10.3 BUN 23 H 21 H 21 H Creatinine 1.3 1.4 H 1.3 Est GFR (CKD-EPI 2020) 72.56 66.39 72.56 Glucose 278 H 212 H 151 H Calcium 8.4 L 8.6 8.7 Magnesium 06/04/24 06/05/24 06/05/24 22:18 00:20 02:03 VBG pH VBG pCO2 VBG pO2 VBG HCO3 VBG Total CO2 VBG O2 Saturation VBG Base Excess Sodium 138 138 140 Potassium 3.7 3.5 3.4 L Chloride 108 H 109 H 110 H Carbon Dioxide 19.6 L 20.9 L 21.2 Anion Gap 10.4 8.1 8.8 BUN 19 H 19 H 18 Creatinine 1.2 1.2 1.2 Est GFR (CKD-EPI 2020) 79.88 79.88 79.88 Glucose 147 H 103 74 Calcium 8.4 L 8.2 L 8.3 L Magnesium 06/05/24 06/05/24 06/05/24 04:11 06:13 08:15 VBG pH 7.33 VBG pCO2 36 L VBG pO2 99 VBG HCO3 19 L VBG Total CO2 18 L VBG O2 Saturation 99 VBG Base Excess -7 L Sodium 138 140 Cancelled Potassium 4.4 D 3.5 Cancelled Chloride 108 H 109 H Cancelled Carbon Dioxide 21.1 20.4 L Cancelled Anion Gap 8.9 10.6 Cancelled BUN 18 16 Cancelled Creatinine 1.2 1.1 Cancelled Est GFR (CKD-EPI 2020) 79.88 88.67 Cancelled Glucose 201 H 221 H Cancelled Calcium 8.3 L 8.2 L Cancelled Magnesium 2.0 06/05/24 06/05/24 06/05/24 10:15 12:15 14:15 VBG pH VBG pCO2 VBG pO2 VBG HCO3 VBG Total CO2 VBG O2 Saturation VBG Base Excess Sodium Cancelled Cancelled Cancelled Potassium Cancelled Cancelled Cancelled Chloride Cancelled Cancelled Cancelled Carbon Dioxide Cancelled Cancelled Cancelled Anion Gap Cancelled Cancelled Cancelled BUN Cancelled Cancelled Cancelled Creatinine Cancelled Cancelled Cancelled Est GFR (CKD-EPI 2020) Cancelled Cancelled Cancelled Glucose Cancelled Cancelled Cancelled Calcium Cancelled Cancelled Cancelled Magnesium 06/05/24 06/05/24 06/05/24 16:15 18:15 20:15 VBG pH VBG pCO2 VBG pO2 VBG HCO3 VBG Total CO2 VBG O2 Saturation VBG Base Excess Sodium Cancelled Cancelled Cancelled Potassium Cancelled Cancelled Cancelled Chloride Cancelled Cancelled Cancelled Carbon Dioxide Cancelled Cancelled Cancelled Anion Gap Cancelled Cancelled Cancelled BUN Cancelled Cancelled Cancelled Creatinine Cancelled Cancelled Cancelled Est GFR (CKD-EPI 2020) Cancelled Cancelled Cancelled Glucose Cancelled Cancelled Cancelled Calcium Cancelled Cancelled Cancelled Magnesium 06/05/24 22:15 VBG pH VBG pCO2 VBG pO2 VBG HCO3 VBG Total CO2 VBG O2 Saturation VBG Base Excess Sodium Cancelled Potassium Cancelled Chloride Cancelled Carbon Dioxide Cancelled Anion Gap Cancelled BUN Cancelled Creatinine Cancelled Est GFR (CKD-EPI 2020) Cancelled Glucose Cancelled Calcium Cancelled Magnesium Time Spent with Patient Time Spent with Patient: >50 minutes Time was spent: preparing to see the patient(eg.review tests), obtaining and/or reviewing separately otained hiistory, ordering medications,tests, procedures, referring, communicating with other health acute care physician, indepentently interpreting results, counseling the patient and care coordination
[2024-06-06] VITALS: PULSE 53; RESP 16
[2024-06-06 02:00] VITALS: PULSE 56; RESP 17
[2024-06-06 04:00] VITALS: PULSE 56; RESP 14
[2024-06-06 04:29] VITALS: BP 114/79; PULSE 62; PULSE 64; RESP 13; TEMP 37.5; O2SAT 100
[2024-06-06] MEDS: Acetaminophen 325 MG TAB PO (04:31)
[2024-06-06 06:32] LABS: HCT 37.5 % (40.0-50.0); HGB 13.2 g/dL (13.5-17.5); MCH 29.6 pg (27.0-33.0); MCHC 35.2 % (32.0-36.0); MCV 84 fL (80-95); MPV 9.6 fL (8.0-11.0); Platelet Count 110 10^3/uL (130-400); RBC 4.46 10^6/uL (4.36-5.78); RDW 12.3 % (11.8-14.1); RDW-SD 37.5 fL; WBC 2.07 10^3/uL (4.4-10.8)
[2024-06-06 06:51] LABS: ALT 99 U/L (16-63); AST 77 U/L (15-37); Alkaline Phosphatase 60 U/L (46-116); Anion Gap 8.3 mmol/L (3-11); BUN 12 mg/dL (7-18); Bilirubin, Total 0.44 mg/dL (0.2-1.0); CO2 24.7 mmol/L (21.0-32.0); CREATININE 0.7 mg/dL (0.70-1.30); Calcium 8.1 mg/dL (8.5-10.1); Chloride 107 mmol/L (98-107); Estimated GFR 121.71 (mL/min/1.73m2); Glucose 182 mg/dL (74-106); Potassium 3.3 mmol/L (3.5-5.1); Sodium 140 mmol/L (136-145); Total Protein 6.2 g/dL (6.4-8.2)
[2024-06-06] MEDS: Insulin Aspart 300 UNITS/3 ML PEN SC (08:01)
[2024-06-06] MEDS: Normal Saline Flush 10 ML SYR IVP (08:01)
[2024-06-06] MEDS: Enoxaparin 40 MG/0.4 ML SYR SC (08:01)
[2024-06-06 08:10] VITALS: BP 121/85; PULSE 64; RESP 18; TEMP 36.4; O2SAT 98
--- NOTE | 2024-06-06 09:11 | W.PM.DS.N ---
Date of service: 06/06/24 Time of Service: 09:11 DS: Diagnosis Discharge Diagnosis (1) DKA (diabetic ketoacidosis): Status: Acute (2) COVID: Status: Acute Discharge Plan Disposition Patient Disposition: Home Condition: Good Discharge Details Reason For Visit: DKA Admit Date/Time: 06/04/24 12:12 Admit Provider: Carter Zapata Attending Provider: Carter Zapata Primary Care Provider: Unknown,Unknown Hospital Course Hospital Course: Patient initially presented with signs and symptoms consistent with DKA that was brought on by SHERIF gastroenteritis, poor p.o. intake, nausea vomiting diarrhea. Patient is a newly diagnosed type I diabetic he was never been in DKA, and upon having his acute illness stopped taking his insulin or checking his blood sugars as he was not having any p.o. intake resulting in DKA. He was initially on heparin drip and his gap did close. His p.o. intake improved and was transition back to his home regimen of insulin. Ultimately was determined he was stable for discharge. Additionally, patient had intermittent episodes of urinary retention which is not new to the patient, as he has a history of childhood meningitis and has had intermittent episodes of urinary retention since that time. Therefore, patient will be discharged with a prescription for self catheterization equipment. Home Meds and New Rx's Prescriptions: New (DME) catheter accessories, external Misc See Rx Instructions .Route Qty: 50 0RF Rx Instructions: As directed Continued insulin lispro 100 unit/mL insulin pen 1 sliding scale dose subcut USEASDIRECTD Levemir FlexPen 100 unit/mL (3 mL) insulin pen 12 unit subcut QHS Discharge Instructions Referrals: Kemi Pedroza DO [OSTEOPATHIC DOCTOR] - (Office of [facility] will call you Friday with an appointment. 06/07/24) Activity:: Activity as Tolerated Equipment/Supplies:: Self-catheterization Diet:: Carb Counting Discharge Orders Discharge Orders: Discharge Order (Routine); Ordered 06/06/24 Ordered By: Carter Zapata DS: Summary Time Spent with Patient providing and/or coordinating discharge services: Greater than 30 minutes Status at Discharge Functional status at discharge: independent ambulation Overall status at discharge: patient is back to baseline Mental Status: mental status grossly normal Speech and Movement: speech and movement normal Mood: congruent mood Affect: normal affect Quality:SDOH Health Related Social Needs: No Data to Display Exam Narrative Exam Narrative: Well-appearing young gentleman laying in bed in no acute distress, ANO x 4, heart RRR, lungs clear to auscultation bilaterally, abdomen soft, nontender, nondistended Psych Mental Status: mental status grossly normal Speech and Movement: speech and movement normal Mood: congruent mood Affect: normal affect DS: Data Vitals/I&O Vitals and I&O: Vital Signs Temperature 97.5 F L 06/06/24 08:10 Temperature Source Tympanic 06/06/24 08:10 Pulse 64 06/06/24 08:10 Pulse 62 06/06/24 04:29 Respiratory Rate 18 06/06/24 08:10 Respiratory Effort Non-Labored 06/04/24 11:41 Respiratory Depth Shallow 06/04/24 11:41 Respiratory Pattern Tachypnea 06/04/24 11:41 Blood Pressure 121/85 06/06/24 08:10 Blood Pressure Mean 90 06/06/24 04:29 Blood Pressure Position Sitting 06/04/24 10:38 Pulse Oximetry 98 06/06/24 08:10 Oxygen Delivery Method Room Air 06/06/24 08:10 Oxygen Flow Rate 0 06/06/24 08:10 Pain Level 0 06/06/24 08:10 Intake & Output 06/05/24 06/06/24 06/06/24 17:59 05:59 17:59 Intake Total 1480.417 / 1480.417 640 / 2120.417 300 / 300 Output Total 1200 / 1200 200 / 1400 300 / 300 Balance 280.417 / 280.417 440 / 720.417 0 / 0 Intake: IV 830.417 / 830.417 Oral 650 / 650 640 / 1290 300 / 300 Output: Urine 850 / 850 200 / 1050 300 / 300 Post Void Residual 150 / 150 Stool 200 / 200 Other: Urine Color Yellow Yellow Yellow Urine Appearance Clear Clear Clear Urine Odor Normal None Comment Performed a straight catheterization on patient; 150mL fluid emptied by this method. Scanned for post void residual. 200mL were put out. Stool Size Small Stool Characteristics Brown Data Completed and Pending Labs on day of discharge: Labs from last 24 hours 06/06/24 06:20 WBC 2.07 L RBC 4.46 Hgb 13.2 L D Hct 37.5 L MCV 84 D MCH 29.6 MCHC 35.2 D RDW 12.3 Plt Count 110 L MPV 9.6 Sodium 140 Potassium 3.3 L Chloride 107 Carbon Dioxide 24.7 Anion Gap 8.3 BUN 12 Creatinine 0.7 Est GFR (CKD-EPI 2020) 121.71 Glucose 182 H Calcium 8.1 L Total Bilirubin 0.44 AST 77 H ALT 99 H Alkaline Phosphatase 60 Total Protein 6.2 L Albumin 3.0 L PFSH All Active Problems (Updated 06/06/24 @ 09:09 by Carter Zapata MD) Urinary retention (Acute) Vomiting (Acute) COVID (Acute) DKA (diabetic ketoacidosis) (Acute) Social History Smoking/Tobacco Use Status: Never Smoking risk assessment performed?: Yes Alcohol Intake: never Drug use: Socially Substance use type: marijuana Housing: house Do you feel safe at home: Yes Do you feel safe in your relationship?: Yes Time Spent with Patient Time Spent with Patient: <45 minutes Time was spent: preparing to see the patient(eg.review tests), obtaining and/or reviewing separately otained hiistory, ordering medications,tests, procedures, referring, communicating with other health caregivers non medical, indepentently interpreting results, counseling the patient and care coordination
--- NOTE | 2024-06-06 09:24 | PDOC.CMDIS ---
Date of service: 06/06/24 Time of Service: 09:24 LACE Index Scoring Tool Questions: Length of Stay (in days): 2 Was the patient admitted via the E.D.?: Yes Comorbidities: Diabetes w/o Complication E.D. Visits: 1 Answers: Total Score: 7 Risk of Readmission: Low Risk Care Management Discharge Plan Reason for Hospitalization: DKA Discharge Plan: Jam will return home with no new services. He will transport home via private vehicle by family. He will follow up with the chief controller provider ([facility]), which will be arranged on Friday, when the office is open. He will follow his discharge plan of care. Patient/Family Education Needs: Review discharge instructions and limitations, discussion of self care needs including ask me three. SDOH Health Related Social Needs: No Data to Display
== END 2024-06-06 09:55 | disposition home or self-care (01) | DRG 637 ==
LOC: ER 10:40 → ICU 12:46
PROVIDERS: Family Medicine; Admitting Provider Family Medicine; Emergency Provider Emergency Medicine; Visit Provider Family Medicine
DX: U07.1 COVID-19 (principal); E10.10 Type 1 diabetes mellitus with ketoacidosis without coma; A08.39 Other viral enteritis; R33.9 Retention of urine, unspecified; Z79.4 Long term (current) use of insulin; R06.02 Shortness of breath; F12.90 Cannabis use, unspecified, uncomplicated
CPT/HCPCS: 00123; 36415; 36416; 80048; 80053; 80307; 82805; 82962; 83690; 85027; 96361; 96365; 96375; 99291; J1650; 71045; 81003; 81015; 83735; 85025; 99223; 99233; 99239; J1815; J2405; J3475; J3480; J7042

== ENCOUNTER 2024-09-07 11:10 | Inpatient (IN) | payer MEDICAID, SELFPAY ==
[2024-09-07] VITALS (19 sets, daily range): BP systolic 105–128; BP diastolic 71–89; PULSE 50–91; RESP 15–21; TEMP 36.7–37.6; O2SAT 93–100
--- NOTE | 2024-09-07 11:30 | DI.RAD_ITS ---
Exam(s) XR CHEST 2V PA LATERAL EXAM: XR CHEST 2V PA LATERAL CLINICAL HISTORY: Cough, c/f COVID/DKA TECHNIQUE: 2D digital imaging was performed of the chest. Two images were obtained. PA and lateral views were obtained. COMPARISON: CR XR PORTABLE CHEST AP from 06/04/2024 FINDINGS: MEDIASTINUM: Normal. HEART: Normal. PULMONARY VASCULATURE: Normal. LUNGS: Clear. PLEURAL SPACE: No pleural effusion or pneumothorax. BONE:Within normal limits for the patient's age. OTHER FINDINGS:Normal. IMPRESSION: No acute pulmonary findings. DATA REPOSITORY: RADIATION DOSE DELIVERED:
--- NOTE | 2024-09-07 11:33 | ED.GENADUL_ITS ---
Discharge Plan Disposition Patient Disposition: Admit to [facility] Condition: Fair Discharge Details Chief Complaint: RespSymp Clinical Impression: Influenza A, DKA (diabetic ketoacidosis), Urinary retention, CASSIDY (acute kidney injury) Primary Care Provider: Unknown,Unknown ED Provider: Rosamaria Oneal Home Meds and New Rx's Prescriptions: No Action insulin lispro 100 unit/mL insulin pen 1 sliding scale dose subcut USEASDIRECTD Levemir FlexPen 100 unit/mL (3 mL) insulin pen 12 unit subcut QHS (DME) catheter accessories, external Misc See Rx Instructions .Route Qty: 50 0RF Rx Instructions: As directed HPI General Mode of arrival: ambulatory . Date/Time Provider Initiated Documentation: 09/07/24 11:23 . Limitations to Documentation: no limitations . Information obtained by: patient and old records reviewed . HPI Narrative: HPI: This is a 38-year-old male patient with a past medical history significant for diabetes presenting for evaluation of nausea with vomiting, headaches, cough. The patient reports that he feels very similar to how he did 2 months ago, when he was admitted to this hospital for diabetic ketoacidosis in the setting of COVID gastroenteritis. States that his symptoms started 2 days ago, he has basically been unable to get out of bed. Tolerating liquids but has not eaten anything other than oranges, states that he has not been using his sliding scale insulin quite as much due to his low p.o. intake. Unsure if he has had a fever, does endorse a generalized headache, not bringing anything up with his cough. Exam: Gen: Awake and alert, appears unwell HEENT: Non-icteric sclera, PERRL, no conjunctival injection Neck: Supple Lungs: No apparent respiratory distress, normal respiratory effort though slightly rapid breathing is noted. Lung sounds clear and equal bilaterally. CV: Appears well perfused, heart with regular rate and rhythm Abdomen: Non-distended, soft, nontender to palpation without rigidity, rebound, guarding MSK: Moves 4 extremities without apparent limitation in ROM Skin: Visualized skin without rashes, cyanosis. Neuro: Normal Gait, no obvious focal deficits or facial asymmetry. Speaks in full, clear sentences. Psych: Appropriate for situation. MDM: This is a 38-year-old male patient presenting for evaluation of nausea and vomiting, headache, cough. Differential includes but is not limited to viral upper respiratory infection, pneumonia, bronchitis, certainly consider gastroenteritis, diabetic ketoacidosis, dehydration, metabolic and electrolyte derangement, kidney injury. I will provide the patient with symptomatic management to include Tylenol, Zofran, and will provide him with a liter of IV fluids for initial rehydration. Will obtain a blood glucose, and laboratory studies to include EKG, CBC, CMP, magnesium, urinalysis, and Fluvid. I will obtain a chest x-ray ED Course: I evaluated the patient's laboratory studies, which show no leukocytosis, anemia or thrombocytopenia. VBG was concerning for an acidosis to 7.2, with a low bicarb of 15, concerning for metabolic acidosis. Chemistry panel with mild hyponatremia at 131, potassium 4.6, anion gap 21. He has evidence of an CASSIDY with BUN of 31 and creatinine of 1.6. Glucose is elevated to 376, no significant liver enzyme abnormalities, urine concerning for ketones, and the Fluvid is positive for influenza A. Chest x-ray reviewed by myself, showing no pulmonary abnormalities. I initiated DKA management with intravenous insulin, patient received a total of 2 L of IV fluids for rehydration and then was started on potassium containing maintenance fluids. He was admitted to the hospitalist service at the ICU level for ongoing management of his DKA. Remained hemodynamically appropriate while under my care. Rosamaria Oneal MD Related Data Home Medications ?Medication ?Instructions ?Recorded ?Confirmed insulin detemir U-100 100 unit/mL 12 unit subcut QHS 04/12/24 09/07/24 (3 mL) subcutaneous pen (Levemir FlexPen) insulin lispro 100 unit/mL 1 sliding scale dose subcut 04/12/24 09/07/24 subcutaneous pen USEASDIRECTD catheter accessories, external #50 ea 06/06/24 09/07/24 Previous Rx's ?Medication ?Instructions ?Recorded catheter accessories, external #50 ea 06/06/24 Allergies Allergy/AdvReac Type Severity Reaction Status Date / Time No Known Allergies Allergy Unverified 09/07/24 11:22 General Stated Complaint: RespSymp HERO: 3 Course Vital Signs Vital signs: Vital Signs Temperature 36.7 C 09/07/24 11:15 Pulse 90 09/07/24 11:15 Respiratory Rate 20 09/07/24 11:15 Blood Pressure 128/89 09/07/24 11:15 Pulse Oximetry 98 09/07/24 11:15 Temperature 36.7 C 09/07/24 11:21 Temperature Source Oral 09/07/24 11:21 Pulse 91 H 09/07/24 11:21 Respiratory Rate 20 09/07/24 11:21 Blood Pressure 128/89 09/07/24 11:21 Blood Pressure Position Sitting 09/07/24 11:21 Pulse Oximetry 98 09/07/24 11:21 Oxygen Delivery Method Room Air 09/07/24 11:21 Oxygen Flow Rate 0 09/07/24 11:15 Pain Level 3 09/07/24 11:21 Medical Decision Making Quality:SDOH Health Related Social Needs: No Data to Display PFSH All Active Problems (Updated 09/07/24 @ 13:21 by Rosamaria Onela MD) DKA (diabetic ketoacidosis) (Acute) CASSIDY (acute kidney injury) (Acute) Influenza A (Acute) Urinary retention (Acute) COVID (Acute) Social History Smoking/Tobacco Use Status: Never Smoking risk assessment performed?: Yes Alcohol Intake: never Drug use: Socially Substance use type: marijuana Housing: house Do you feel safe at home: Yes Do you feel safe in your relationship?: Yes
[2024-09-07] MEDS: ACETAMINOPHEN 1,000 MG/100 ML BAG 400 MG IVPB (11:53)
[2024-09-07] MEDS: Lactated Ringers 1,000 ML 1000 ML IV ×2 (11:55→13:35)
[2024-09-07] MEDS: Ondansetron 4 MG/2 ML VIAL IVP (11:55)
[2024-09-07 11:57] LABS: BE (Venous) -13 mmol/L (-2-3); HCO3 (Venous) 15 mmol/L (23-28); O2 Sat (Venous) 43 %; TCO2 (Venous) 13 mmol/L (24-29); pCO2 (Venous) 38 mmHg (41-51); pO2 (Venous) 24 mmHg
[2024-09-07 11:58] LABS: Abs Immature Grans 0.01 10^3/uL (0.0-0.06); Absolute Basophil Count 0.01 10^3/uL (0.0-0.2); Absolute Lymphocyte Count 1.17 10^3/uL (1.2-3.4); Absolute Monocyte Count 0.42 10^3/uL (0.1-0.8); Absolute Neutrophil Count 2.66 10^3/uL (1.2-6.7); Basophils % 0.2 %; HCT 51.6 % (40.0-50.0); HGB 17.5 g/dL (13.5-17.5); Immature Grans % 0.2 %; Lymphocytes % 27.4 %; MCH 29.9 pg (27.0-33.0); MCHC 33.9 % (32.0-36.0); MCV 88 fL (80-95); MPV 9.9 fL (8.0-11.0); Monocytes % 9.8 %; Neutrophils % 62.4 %; Platelet Count 181 10^3/uL (130-400); RBC 5.85 10^6/uL (4.36-5.78); RDW 11.9 % (11.8-14.1); RDW-SD 38.6 fL; WBC 4.27 10^3/uL (4.4-10.8)
[2024-09-07 12:09] LABS: COVID-19 PCR Negative (Negative); Influenza A PCR Positive (Negative); Influenza B PCR Negative (Negative); RSV PCR Negative (Negative)
[2024-09-07 12:14] LABS: ALT 69 U/L (16-63); AST 28 U/L (15-37); Albumin 4.2 g/dL (3.4-5.0); Alkaline Phosphatase 88 U/L (46-116); Anion Gap 21.3 mmol/L (3-11); BUN 31 mg/dL (7-18); Bilirubin, Total 0.4 mg/dL (0.2-1.0); CO2 15.7 mmol/L (21.0-32.0); CREATININE 1.6 mg/dL (0.70-1.30); Calcium 9.8 mg/dL (8.5-10.1); Chloride 94 mmol/L (98-107); Estimated GFR 56.56 (mL/min/1.73m2); Glucose 376 mg/dL (74-106); Magnesium 1.9 mg/dL; Potassium 4.6 mmol/L (3.5-5.1); Sodium 131 mmol/L (136-145); Total Protein 8.9 g/dL (6.4-8.2)
[2024-09-07 12:35] LABS: Source Nasopharynx
[2024-09-07 12:58] LABS: Bilirubin Small (Negative); Blood Negative (Negative); Clarity Clear (Clear); Glucose 500 mg/dL (Negative); Ketones 80 mg/dL (Negative); Leukocyte Esterase Negative (Negative); Nitrite Negative (Negative); Specific Gravity 1.025 (1.005-1.025); Urobilinogen 0.2 mg/dL (Up to 0.2); pH 5.5 (5-8)
--- NOTE | 2024-09-07 13:05 | W.PM.HP.N ---
Date of service: 09/07/24 Time of Service: 13:05 Assessment and Plan Assessment and plan (1) DKA (diabetic ketoacidosis): Status: Resolved Assessment and plan: - Patient presented with nausea, vomiting, headache that was determined to be secondary to DKA likely exacerbated by flu a -Patient stated he was not taking his sliding scale insulin or checking his blood sugar levels over the last 2 days while feeling ill -Blood sugar level in the emergency department 370, anion gap 21.3, potassium 4.6, pH 7.2, pCO2 38 and bicarb 15 -Patient will be started on DKA protocol with insulin drip, and will be given appropriate either potassium and or glucose containing fluid based on blood glucose levels until anion gap closes -Will restart long-acting insulin this evening, and once patient is able to tolerate p.o. intake and his anion gap is closed he will be taken off of DKA protocol and allowed to have p.o. intake (2) Influenza A: Status: Acute Assessment and plan: - Likely exacerbating factor leading to DKA as noted above -Minimal respiratory symptoms, will not give Tamiflu (3) CASSIDY (acute kidney injury): Status: Acute Assessment and plan: - Likely secondary to dehydration in the setting of DKA as noted above -Creatinine 1.6 (baseline 0.7) -Follow-up a.m. BMP History of Present Illness History of Present Illness Chief Complaint: N/V, LACKEY, cough Narrative: 38-year-old male with a past medical history of type 1 diabetes, and recent hospitalization at [facility] in May 2024 for COVID and subsequent DKA presents back to the emergency department with nausea vomiting headaches and cough. Patient states that he has been not feeling well over the last few days, and since that time he has been tolerating liquids, only eating oranges, but has not been using his sliding scale insulin due to his poor p.o. intake and has not been checking his blood sugar levels. He states that he had a nonbilious nonbloody vomit with associated nausea, and headache with a cough but has not felt short of breath. He also denies any fevers, lightheadedness, dizziness or productive sputum. In the emergency department patient was noted as having normal vital signs, normal physical exam. However, his CBC was unremarkable but CMP and VBG confirmed DKA with a pH of 7.2, pCO2 of 38, bicarb of 15, sodium of 131, anion gap of 21.3, as well as the presence of an CASSIDY with creatinine of 1.6 (baseline 0.7), and a blood sugar level of 376. Patient was also found to be flu a positive. Patient was started on DKA protocol with insulin drip and emergency room physician paged hospitalist for admission for patient with DKA requiring ICU level of care for insulin drip and close glucose monitoring. Review of Systems All systems reviewed & are unremarkable except as noted in HPI and below PFSH All Active Problems (Updated 09/07/24 @ 13:21 by Rosamaria Oneal MD) DKA (diabetic ketoacidosis) (Acute) CASSIDY (acute kidney injury) (Acute) Influenza A (Acute) Urinary retention (Acute) COVID (Acute) Social History Smoking/Tobacco Use Status: Never Smoking risk assessment performed?: Yes Alcohol Intake: never Drug use: Socially Substance use type: marijuana Housing: house Do you feel safe at home: Yes Do you feel safe in your relationship?: Yes Meds Allergies and Home Medications Allergies Allergy/AdvReac Type Severity Reaction Status Date / Time No Known Allergies Allergy Unverified 09/07/24 11:22 Home Medications ?Medication ?Instructions ?Recorded ?Confirmed ?Type insulin detemir U-100 100 unit/mL 12 unit subcut QHS 04/12/24 09/07/24 History (3 mL) subcutaneous pen (Levemir FlexPen) insulin lispro 100 unit/mL 1 sliding scale dose subcut 04/12/24 09/07/24 History subcutaneous pen USEASDIRECTD catheter accessories, external #50 ea 06/06/24 09/07/24 Rx Exam Narrative Exam Narrative: Fatigued appearing young gentleman laying in bed in no acute distress, ANO x 4, heart regular rhythm, lungs clear to auscultation bilaterally, abdomen soft, nontender, nondistended Results Labs 09/07/24 11:45 09/07/24 14:35 Labs: Laboratory Results - last 24 hr 09/07/24 09/07/24 09/07/24 11:27 11:45 12:49 WBC 4.27 L RBC 5.85 H Hgb 17.5 Hct 51.6 H MCV 88 MCH 29.9 MCHC 33.9 RDW 11.9 Plt Count 181 MPV 9.9 Immature Gran % 0.2 Neutrophils % 62.4 Lymphocytes % 27.4 Monocytes % 9.8 Eosinophils % 0.0 Basophils % 0.2 Nucleated RBC % 0.0 Absolute Neutrophils 2.66 Absolute Lymphocytes 1.17 L Absolute Monocytes 0.42 Absolute Eosinophils 0.00 Absolute Basophils 0.01 VBG pH 7.20 L VBG pCO2 38 L VBG pO2 24 VBG HCO3 15 L VBG Total CO2 13 L VBG O2 Saturation 43 VBG Base Excess -13 L Sodium 131 L Potassium 4.6 Chloride 94 L Carbon Dioxide 15.7 L Anion Gap 21.3 H BUN 31 H Creatinine 1.6 H Est GFR (CKD-EPI 2020) 56.56 Glucose 376 H Calcium 9.8 Magnesium 1.9 Total Bilirubin 0.4 AST 28 ALT 69 H Alkaline Phosphatase 88 Total Protein 8.9 H Albumin 4.2 Urine Color Yellow Urine Clarity Clear Urine pH 5.5 Ur Specific [place] 1.025 Urine Protein 100 H Urine Ketones 80 H Urine Blood Negative Urine Nitrite Negative Urine Bilirubin Small H Urine Urobilinogen 0.2 Ur Leukocyte Esterase Negative Urine Glucose 500 H COVID-19 Source Nasopharynx SARS-CoV-2 (PCR) Negative Influenza Type A (PCR) Positive A Influenza Type B (PCR) Negative RSV (PCR) Negative Last Vital Signs Temp 98.0 F 09/07/24 11:21 Pulse 57 L 09/07/24 12:12 Resp 19 09/07/24 12:12 BP 128/89 09/07/24 11:21 Pulse Ox 100 09/07/24 12:12 Time Spent Time spent with Patient: >75 minutes Time was spent: preparing to see the patient(eg.review tests), obtaining and/or reviewing separately otained hiistory, ordering medications,tests, procedures, referring, communicating with other health care support representative, indepentently interpreting results, counseling the patient and care coordination
[2024-09-07 13:10] LABS: Bacteria Rare HPF (Negative); C & S Indicated? No; Crystals Negative HPF (Negative); Epithelial Cells Rare HPF (Negative); Mucus Negative (Negative); Other Cells Negative (Negative); RBC 0-2 HPF (0-2); WBC 0-2 HPF (0-5)
[2024-09-07] MEDS: INSULIN REGULAR IN 0.9 % NACL 100 UNIT/100 ML BAG IVINF (13:33)
[2024-09-07] MEDS: POTASSIUM CHLORIDE/0.9% NACL 1,000 ML 100 MEQ IV (14:44)
[2024-09-07 14:57] LABS: Anion Gap 18.5 mmol/L (3-11); BUN 29 mg/dL (7-18); CO2 17.5 mmol/L (21.0-32.0); CREATININE 1.2 mg/dL (0.70-1.30); Chloride 99 mmol/L (98-107); Estimated GFR 79.88 (mL/min/1.73m2); Glucose 353 mg/dL (74-106); Magnesium 1.7 mg/dL; Potassium 4.4 mmol/L (3.5-5.1); Sodium 135 mmol/L (136-145)
--- NOTE | 2024-09-07 16:27 | W.PC.ACHO ---
Registration Status: Primary Language: Preferred Language: ED Information & Data Chief Complaint RespSymp 09/07/24 12:20 Chief Complaint RespSymp 09/07/24 11:34 Triage Note patient state he thinks he 09/07/24 11:15 has covid and diabetic and he was here 2 months ago for the same symptoms. he has been throwing up, coughing sneezing having a hard time getting up and he has been able to get out of bed the last 3 days. Patient reported that he is having a headache took dayquil at home but it was not being effective so he stopped taking it Most Recent Vital Signs Temperature 37.1 C 09/07/24 13:45 Temperature Source Temporal Artery Scan 09/07/24 13:45 Pulse 58 L 09/07/24 13:31 Pulse 58 L 09/07/24 13:31 Respiratory Rate 18 09/07/24 13:31 Respiratory Effort Normal 09/07/24 12:20 Respiratory Depth Normal 09/07/24 12:20 Blood Pressure 119/75 09/07/24 13:31 Blood Pressure Mean 89 09/07/24 13:31 Blood Pressure Position Sitting 09/07/24 11:21 Pulse Oximetry 100 09/07/24 13:31 Oxygen Delivery Method Room Air 09/07/24 11:21 Oxygen Flow Rate 0 09/07/24 11:15 Pain Level 3 09/07/24 11:21 Allergies No Known Allergies Allergy (Unverified 09/07/24 11:22) Active Medications Generic Name Dose Route Start Last Admin Trade Name Freq PRN Reason Stop Dose Admin Potassium Chloride/Sodium Chloride 1,000 mls @ 100 mls/hr 09/07/24 13:15 09/07/24 14:44 Kcl 20meq/Ns IV 100 mls/hr INFUSION MARIA EUGENIA Administration Insulin Human Regular 100 unit in 100 mls @ 2 mls/hr 09/07/24 13:15 09/07/24 15:40 Myxredlin IVINF 3 unit/hr INFUSION MARIA EUGENIA 3 mls/hr Titration Protocol 2 UNIT/HR IV IV Catheter Type [Left Saline Lock Antecubital] IV Catheter Type [Right Peripheral IV Antecubital Proximal Port] IV Catheter Gauge [Left 20 Antecubital] IV Catheter Gauge [Right 18 Antecubital Proximal Port] Diet Orders Category Date Time Status Nothing Per Oral [DIET] Nutrition 09/07/24 Dinner Active Diagnostics 09/07/24 09/07/24 09/07/24 Range/Units 22:11 20:11 18:11 WBC (4.4-10.8) 10^3/uL RBC (4.36-5.78) 10^6/uL Hgb (13.5-17.5) g/dL Hct (40.0-50.0) % MCV (80-95) fL MCH (27.0-33.0) pg MCHC (32.0-36.0) % RDW (11.8-14.1) % Plt Count (130-400) 10^3/uL MPV (8.0-11.0) fL Immature Gran % % Neutrophils % % Lymphocytes % % Monocytes % % Eosinophils % % Basophils % % Nucleated RBC % (0.0-0.3) % Absolute Neutrophils (1.2-6.7) 10^3/uL Absolute Lymphocytes (1.2-3.4) 10^3/uL Absolute Monocytes (0.1-0.8) 10^3/uL Absolute Eosinophils (0.0-0.7) 10^3/uL Absolute Basophils (0.0-0.2) 10^3/uL VBG pH (7.31-7.41) VBG pCO2 (41-51) mmHg VBG pO2 mmHg VBG HCO3 (23-28) mmol/L VBG Total CO2 (24-29) mmol/L VBG O2 Saturation % VBG Base Excess (-2-3) mmol/L Sodium Pending Pending Pending (136-145) mmol/L Potassium Pending Pending Pending (3.5-5.1) mmol/L Chloride Pending Pending Pending (98-107) mmol/L Carbon Dioxide Pending Pending Pending (21.0-32.0) mmol/L Anion Gap Pending Pending Pending (3-11) mmol/L BUN Pending Pending Pending (7-18) mg/dL Creatinine Pending Pending Pending (0.70-1.30) mg/dL Est GFR (CKD-EPI 2020) Pending Pending Pending (mL/min/1.73m2) Glucose Pending Pending Pending (74-106) mg/dL Calcium Pending Pending Pending (8.5-10.1) mg/dL Magnesium Pending Pending Pending mg/dL Total Bilirubin (0.2-1.0) mg/dL AST (15-37) U/L ALT (16-63) U/L Alkaline Phosphatase (46-116) U/L Total Protein (6.4-8.2) g/dL Albumin (3.4-5.0) g/dL Urine Color (Yellow) Urine Clarity (Clear) Urine pH (5-8) Ur Specific [place] (1.005-1.025) Urine Protein (Neg-Trace) mg/dL Urine Ketones (Negative) mg/dL Urine Blood (Negative) Urine Nitrite (Negative) Urine Bilirubin (Negative) Urine Urobilinogen (Up to 0.2) mg/dL Ur Leukocyte Esterase (Negative) Urine RBC (0-2) HPF Urine WBC (0-5) HPF Ur Epithelial Cells (Negative) HPF Urine Crystals (Negative) HPF Urine Bacteria (Negative) HPF Urine Casts (Negative) LPF Urine Mucus (Negative) Urine Other (Negative) Ur Culture Indicated? Urine Glucose (Negative) mg/dL COVID-19 Source SARS-CoV-2 (PCR) (Negative) Influenza Type A (PCR) (Negative) Influenza Type B (PCR) (Negative) RSV (PCR) (Negative) 09/07/24 09/07/24 09/07/24 Range/Units 16:00 14:35 12:49 WBC (4.4-10.8) 10^3/uL RBC (4.36-5.78) 10^6/uL Hgb (13.5-17.5) g/dL Hct (40.0-50.0) % MCV (80-95) fL MCH (27.0-33.0) pg MCHC (32.0-36.0) % RDW (11.8-14.1) % Plt Count (130-400) 10^3/uL MPV (8.0-11.0) fL Immature Gran % % Neutrophils % % Lymphocytes % % Monocytes % % Eosinophils % % Basophils % % Nucleated RBC % (0.0-0.3) % Absolute Neutrophils (1.2-6.7) 10^3/uL Absolute Lymphocytes (1.2-3.4) 10^3/uL Absolute Monocytes (0.1-0.8) 10^3/uL Absolute Eosinophils (0.0-0.7) 10^3/uL Absolute Basophils (0.0-0.2) 10^3/uL VBG pH (7.31-7.41) VBG pCO2 (41-51) mmHg VBG pO2 mmHg VBG HCO3 (23-28) mmol/L VBG Total CO2 (24-29) mmol/L VBG O2 Saturation % VBG Base Excess (-2-3) mmol/L Sodium Pending 135 L (136-145) mmol/L Potassium Pending 4.4 (3.5-5.1) mmol/L Chloride Pending 99 (98-107) mmol/L Carbon Dioxide Pending 17.5 L (21.0-32.0) mmol/L Anion Gap Pending 18.5 H (3-11) mmol/L BUN Pending 29 H (7-18) mg/dL Creatinine Pending 1.2 (0.70-1.30) mg/dL Est GFR (CKD-EPI 2020) Pending 79.88 (mL/min/1.73m2) Glucose Pending 353 H (74-106) mg/dL Calcium Pending 9.0 (8.5-10.1) mg/dL Magnesium Pending 1.7 mg/dL Total Bilirubin (0.2-1.0) mg/dL AST (15-37) U/L ALT (16-63) U/L Alkaline Phosphatase (46-116) U/L Total Protein (6.4-8.2) g/dL Albumin (3.4-5.0) g/dL Urine Color Yellow (Yellow) Urine Clarity Clear (Clear) Urine pH 5.5 (5-8) Ur Specific [place] 1.025 (1.005-1.025) Urine Protein 100 H (Neg-Trace) mg/dL Urine Ketones 80 H (Negative) mg/dL Urine Blood Negative (Negative) Urine Nitrite Negative (Negative) Urine Bilirubin Small H (Negative) Urine Urobilinogen 0.2 (Up to 0.2) mg/dL Ur Leukocyte Esterase Negative (Negative) Urine RBC 0-2 (0-2) HPF Urine WBC 0-2 (0-5) HPF Ur Epithelial Cells Rare (Negative) HPF Urine Crystals Negative (Negative) HPF Urine Bacteria Rare (Negative) HPF Urine Casts 5-10 Fine Granular (Negative) LPF Urine Mucus Negative (Negative) Urine Other Negative (Negative) Ur Culture Indicated? No Urine Glucose 500 H (Negative) mg/dL COVID-19 Source SARS-CoV-2 (PCR) (Negative) Influenza Type A (PCR) (Negative) Influenza Type B (PCR) (Negative) RSV (PCR) (Negative) 09/07/24 09/07/24 Range/Units 11:45 11:27 WBC 4.27 L (4.4-10.8) 10^3/uL RBC 5.85 H (4.36-5.78) 10^6/uL Hgb 17.5 (13.5-17.5) g/dL Hct 51.6 H (40.0-50.0) % MCV 88 (80-95) fL MCH 29.9 (27.0-33.0) pg MCHC 33.9 (32.0-36.0) % RDW 11.9 (11.8-14.1) % Plt Count 181 (130-400) 10^3/uL MPV 9.9 (8.0-11.0) fL Immature Gran % 0.2 % Neutrophils % 62.4 % Lymphocytes % 27.4 % Monocytes % 9.8 % Eosinophils % 0.0 % Basophils % 0.2 % Nucleated RBC % 0.0 (0.0-0.3) % Absolute Neutrophils 2.66 (1.2-6.7) 10^3/uL Absolute Lymphocytes 1.17 L (1.2-3.4) 10^3/uL Absolute Monocytes 0.42 (0.1-0.8) 10^3/uL Absolute Eosinophils 0.00 (0.0-0.7) 10^3/uL Absolute Basophils 0.01 (0.0-0.2) 10^3/uL VBG pH 7.20 L (7.31-7.41) VBG pCO2 38 L (41-51) mmHg VBG pO2 24 mmHg VBG HCO3 15 L (23-28) mmol/L VBG Total CO2 13 L (24-29) mmol/L VBG O2 Saturation 43 % VBG Base Excess -13 L (-2-3) mmol/L Sodium 131 L (136-145) mmol/L Potassium 4.6 (3.5-5.1) mmol/L Chloride 94 L (98-107) mmol/L Carbon Dioxide 15.7 L (21.0-32.0) mmol/L Anion Gap 21.3 H (3-11) mmol/L BUN 31 H (7-18) mg/dL Creatinine 1.6 H (0.70-1.30) mg/dL Est GFR (CKD-EPI 2020) 56.56 (mL/min/1.73m2) Glucose 376 H (74-106) mg/dL Calcium 9.8 (8.5-10.1) mg/dL Magnesium 1.9 mg/dL Total Bilirubin 0.4 (0.2-1.0) mg/dL AST 28 (15-37) U/L ALT 69 H (16-63) U/L Alkaline Phosphatase 88 (46-116) U/L Total Protein 8.9 H (6.4-8.2) g/dL Albumin 4.2 (3.4-5.0) g/dL Urine Color (Yellow) Urine Clarity (Clear) Urine pH (5-8) Ur Specific [place] (1.005-1.025) Urine Protein (Neg-Trace) mg/dL Urine Ketones (Negative) mg/dL Urine Blood (Negative) Urine Nitrite (Negative) Urine Bilirubin (Negative) Urine Urobilinogen (Up to 0.2) mg/dL Ur Leukocyte Esterase (Negative) Urine RBC (0-2) HPF Urine WBC (0-5) HPF Ur Epithelial Cells (Negative) HPF Urine Crystals (Negative) HPF Urine Bacteria (Negative) HPF Urine Casts (Negative) LPF Urine Mucus (Negative) Urine Other (Negative) Ur Culture Indicated? Urine Glucose (Negative) mg/dL COVID-19 Source Nasopharynx SARS-CoV-2 (PCR) Negative (Negative) Influenza Type A (PCR) Positive A (Negative) Influenza Type B (PCR) Negative (Negative) RSV (PCR) Negative (Negative) [id number] Documentation Fingerstick Glucose Start: 09/07/24 11:26 Freq: .Stat Status: Active Protocol: Activity Type Activity Date Activity User E-sign Co-sign Detail Recorded Client Recorded Date Recorded By Document 09/07/24 11:55 BKG DAEMON(7) [id number] 09/07/24 11:56 BKG DAEMON(8) Fingerstick Glucose Start: 09/07/24 13:03 Freq: .Q1H Status: Active Protocol: Activity Type Activity Date Activity User E-sign Co-sign Detail Recorded Client Recorded Date Recorded By Document 09/07/24 13:12 BKG DAEMON(9) [id number] 09/07/24 13:13 BKG DAEMON(10) Fingerstick Glucose Start: 09/07/24 14:11 Freq: .Q1H Status: Active Protocol: Activity Type Activity Date Activity User E-sign Co-sign Detail Recorded Client Recorded Date Recorded By Document 09/07/24 15:40 BKG DAEMON(10) [id number] 09/07/24 15:40 BKG DAEMON(10) Intake and Output - 24 Hour Total 09/07/24 11:10 thru 09/07/24 15:45 Intake Total Output Total 450 Balance 1564.775 Weight 51.3 kg Intake: IV Output: Urine 450 Other: Urine Color Yellow Urine Appearance Clear Falls Risk Assessment History of Falls No History 09/07/24 12:20 Contributing Factors No Factors 09/07/24 12:20 Ambulatory Aids Independent 09/07/24 12:20 Tubes/Lines None 09/07/24 12:20 Cognition No cognitive impairment 09/07/24 12:20 Fall Total Score 0 09/07/24 12:20 Level of Risk Standard/Low Risk 09/07/24 12:20 Problems (Last Reviewed 06/04/24 @ 11:00 by Rui Casey MD) CASSIDY (acute kidney injury) (Acute) Influenza A (Acute) v v v v v v v v v Sending and/or Receiving Nurses: Please use comment section below to note any information pertinent to the patient hand-off not included above. Information / Comments: Report received from: Garo Burnett RN All questions answered
[2024-09-07 17:24] LABS: Anion Gap 15.8 mmol/L (3-11); BUN 26 mg/dL (7-18); CO2 18.2 mmol/L (21.0-32.0); CREATININE 1.1 mg/dL (0.70-1.30); Calcium 8.7 mg/dL (8.5-10.1); Chloride 102 mmol/L (98-107); Estimated GFR 88.67 (mL/min/1.73m2); Glucose 258 mg/dL (74-106); Magnesium 1.7 mg/dL; Potassium 3.9 mmol/L (3.5-5.1); Sodium 136 mmol/L (136-145)
[2024-09-07] MEDS: DEXTROSE 5%-0.45% SALINE 1,000 ML 100 ML IV (18:36)
[2024-09-07] MEDS: Normal Saline Flush 10 ML SYR IVP (19:19)
[2024-09-07] MEDS: Acetaminophen 325 MG TAB PO (19:47)
[2024-09-07 20:42] LABS: Anion Gap 7.6 mmol/L (3-11); BUN 24 mg/dL (7-18); CO2 24.4 mmol/L (21.0-32.0); CREATININE 1.2 mg/dL (0.70-1.30); Calcium 8.3 mg/dL (8.5-10.1); Chloride 103 mmol/L (98-107); Estimated GFR 79.88 (mL/min/1.73m2); Glucose 175 mg/dL (74-106); Magnesium 1.7 mg/dL; Potassium 3.7 mmol/L (3.5-5.1); Sodium 135 mmol/L (136-145)
[2024-09-07 22:19] LABS: Anion Gap 7.4 mmol/L (3-11); BUN 22 mg/dL (7-18); CO2 24.6 mmol/L (21.0-32.0); Calcium 8.3 mg/dL (8.5-10.1); Chloride 104 mmol/L (98-107); Estimated GFR 99.41 (mL/min/1.73m2); Glucose 148 mg/dL (74-106); Magnesium 1.7 mg/dL; Potassium 3.8 mmol/L (3.5-5.1); Sodium 136 mmol/L (136-145)
[2024-09-08] VITALS (12 sets, daily range): BP systolic 90–118; BP diastolic 58–90; PULSE 52–86; RESP 14–21; TEMP 37.7; O2SAT 97–99
[2024-09-08] MEDS: Normal Saline Flush 10 ML SYR IVP ×4 (00:07→07:58)
[2024-09-08 00:17] LABS: Anion Gap 5.9 mmol/L (3-11); BUN 21 mg/dL (7-18); CO2 24.1 mmol/L (21.0-32.0); CREATININE 1.1 mg/dL (0.70-1.30); Calcium 8.3 mg/dL (8.5-10.1); Chloride 105 mmol/L (98-107); Estimated GFR 88.67 (mL/min/1.73m2); Glucose 125 mg/dL (74-106); Magnesium 1.7 mg/dL; Potassium 3.7 mmol/L (3.5-5.1); Sodium 135 mmol/L (136-145)
[2024-09-08 01:57] LABS: Anion Gap 5.2 mmol/L (3-11); BUN 20 mg/dL (7-18); CO2 25.8 mmol/L (21.0-32.0); CREATININE 1.1 mg/dL (0.70-1.30); Calcium 8.3 mg/dL (8.5-10.1); Chloride 105 mmol/L (98-107); Estimated GFR 88.67 (mL/min/1.73m2); Glucose 97 mg/dL (74-106); Magnesium 1.7 mg/dL; Potassium 3.7 mmol/L (3.5-5.1); Sodium 136 mmol/L (136-145)
[2024-09-08] MEDS: DEXTROSE 5%-0.45% SALINE 1,000 ML 100 ML IV (04:37)
[2024-09-08 05:54] LABS: Anion Gap 6.2 mmol/L (3-11); BUN 18 mg/dL (7-18); CO2 25.8 mmol/L (21.0-32.0); CREATININE 0.9 mg/dL (0.70-1.30); Calcium 7.9 mg/dL (8.5-10.1); Chloride 107 mmol/L (98-107); Estimated GFR 112.81 (mL/min/1.73m2); Glucose 82 mg/dL (74-106); Potassium 3.2 mmol/L (3.5-5.1); Sodium 139 mmol/L (136-145)
--- NOTE | 2024-09-08 09:08 | DSE_ITS ---
Date of service: 09/08/24 Time of Service: 09:09 DS: Diagnosis Discharge Diagnosis (1) DKA (diabetic ketoacidosis): Status: Resolved (2) Influenza A: Status: Acute (3) CASSIDY (acute kidney injury): Status: Acute Discharge Plan Disposition Patient Disposition: Home Condition: Good Discharge Details Reason For Visit: DKA, Flu A+ Admit Date/Time: 09/07/24 13:04 Admit Provider: Carter Zapata Attending Provider: Carter Zapata Primary Care Provider: Unknown,Unknown Hospital Course Hospital Course: Patient initially presented with signs and symptoms consistent with DKA. After discussing with the patient, he had been checking his blood sugars and using his sliding scale insulin, but DKA was likely exacerbated by flu a. Patient was initially on insulin drip and DKA protocol but was able to transition to his usual insulin regimen and had been tolerating p.o. intake as of the morning of 09/08/2024. While patient did meet ICU admission criteria on day of admission, he improved more rapidly than anticipated and was therefore determined to be stable for discharge home. Home Meds and New Rx's Prescriptions: Continued insulin lispro 100 unit/mL insulin pen 1 sliding scale dose subcut USEASDIRECTD Levemir FlexPen 100 unit/mL (3 mL) insulin pen 12 unit subcut QHS (DME) catheter accessories, external Misc See Rx Instructions .Route Qty: 50 0RF Rx Instructions: As directed Discharge Instructions Referrals: Lio aPtel MD [ 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 has trouble getting caths at home) Activity:: Activity as Tolerated Equipment/Supplies:: No Equipment Needed Diet:: As Tolerated Discharge Orders Discharge Orders: Discharge Order (Routine); Ordered 09/08/24 Ordered By: Carter Zapata DS: Summary Time Spent with Patient providing and/or coordinating discharge services: Greater than 30 minutes Status at Discharge Functional status at discharge: independent ambulation Overall status at discharge: patient is back to baseline Mental Status: mental status grossly normal Speech and Movement: speech and movement normal Mood: congruent mood Affect: normal affect Quality:SDOH Health Related Social Needs: No Data to Display Exam Narrative Exam Narrative: Well appearing young gentleman laying in bed in no acute distress, ANO x 4, heart regular rhythm, lungs clear to auscultation bilaterally, abdomen soft, nontender, nondistended Psych Mental Status: mental status grossly normal Speech and Movement: speech and movement normal Mood: congruent mood Affect: normal affect DS: Data Vitals/I&O Vitals and I&O: Vital Signs Temperature 99.9 F H 09/08/24 03:10 Temperature Source Temporal Artery Scan 09/08/24 03:10 Pulse 86 09/08/24 08:01 Pulse 86 09/08/24 08:01 Respiratory Rate 20 09/08/24 08:01 Respiratory Effort Normal 09/07/24 12:20 Respiratory Depth Normal 09/07/24 12:20 Blood Pressure 115/83 09/08/24 08:01 Blood Pressure Mean 91 09/08/24 08:01 Blood Pressure Position Sitting 09/07/24 11:21 Pulse Oximetry 98 09/08/24 08:01 Oxygen Delivery Method Room Air 09/08/24 03:10 Oxygen Flow Rate 0 09/08/24 03:10 Pain Level 3 09/07/24 19:47 Intake & Output 09/07/24 09/08/24 09/08/24 17:59 05:59 17:59 Intake Total 2120.625 / 2120.625 1791.535 / 3912.160 Output Total 450 / 450 850 / 1300 200 / 200 Balance 1670.625 / 1670.625 941.535 / 2612.160 -200 / -200 Weight 113 lb 1.554 oz 117 lb 11.629 oz Intake: IV 2120.625 / 2120.625 1413.535 / 3534.160 Oral 378 / 378 Output: Urine 450 / 450 850 / 1300 200 / 200 Other: Urine Color Yellow Yellow Yellow Urine Appearance Clear Clear Cloudy Urine Odor Normal Data Completed and Pending Labs on day of discharge: Labs from last 24 hours 09/08/24 09/08/24 09/08/24 05:35 05:30 05:05 WBC RBC Hgb Hct MCV MCH MCHC RDW Plt Count MPV Immature Gran % Neutrophils % Lymphocytes % Monocytes % Eosinophils % Basophils % Nucleated RBC % Absolute Neutrophils Absolute Lymphocytes Absolute Monocytes Absolute Eosinophils Absolute Basophils ABG Sample Site Pending ABG pH Pending ABG pCO2 Pending ABG pO2 Pending ABG HCO3 Pending ABG Total CO2 Pending ABG O2 Saturation Pending ABG Base Excess Pending VBG pH VBG pCO2 VBG pO2 VBG HCO3 VBG Total CO2 VBG O2 Saturation VBG Base Excess Sodium 139 Cancelled Potassium 3.2 L Cancelled Chloride 107 Cancelled Carbon Dioxide 25.8 Cancelled Anion Gap 6.2 Cancelled BUN 18 Cancelled Creatinine 0.9 Cancelled Est GFR (CKD-EPI 2020) 112.81 Cancelled Glucose 82 Cancelled Calcium 7.9 L Cancelled Magnesium Total Bilirubin AST ALT Alkaline Phosphatase Total Protein Albumin Urine Color Urine Clarity Urine pH Ur Specific [place] Urine Protein Urine Ketones Urine Blood Urine Nitrite Urine Bilirubin Urine Urobilinogen Ur Leukocyte Esterase Urine RBC Urine WBC Ur Epithelial Cells Urine Crystals Urine Bacteria Urine Casts Urine Mucus Urine Other Ur Culture Indicated? Urine Glucose COVID-19 Source SARS-CoV-2 (PCR) Influenza Type A (PCR) Influenza Type B (PCR) RSV (PCR) 09/08/24 09/07/24 09/07/24 01:30 23:59 23:34 WBC RBC Hgb Hct MCV MCH MCHC RDW Plt Count MPV Immature Gran % Neutrophils % Lymphocytes % Monocytes % Eosinophils % Basophils % Nucleated RBC % Absolute Neutrophils Absolute Lymphocytes Absolute Monocytes Absolute Eosinophils Absolute Basophils ABG Sample Site ABG pH ABG pCO2 ABG pO2 ABG HCO3 ABG Total CO2 ABG O2 Saturation ABG Base Excess VBG pH VBG pCO2 VBG pO2 VBG HCO3 VBG Total CO2 VBG O2 Saturation VBG Base Excess Sodium 136 135 L Cancelled Potassium 3.7 3.7 Cancelled Chloride 105 105 Cancelled Carbon Dioxide 25.8 24.1 Cancelled Anion Gap 5.2 5.9 Cancelled BUN 20 H 21 H Cancelled Creatinine 1.1 1.1 Cancelled Est GFR (CKD-EPI 2020) 88.67 88.67 Cancelled Glucose 97 125 H Cancelled Calcium 8.3 L 8.3 L Cancelled Magnesium 1.7 1.7 Cancelled Total Bilirubin AST ALT Alkaline Phosphatase Total Protein Albumin Urine Color Urine Clarity Urine pH Ur Specific [place] Urine Protein Urine Ketones Urine Blood Urine Nitrite Urine Bilirubin Urine Urobilinogen Ur Leukocyte Esterase Urine RBC Urine WBC Ur Epithelial Cells Urine Crystals Urine Bacteria Urine Casts Urine Mucus Urine Other Ur Culture Indicated? Urine Glucose COVID-19 Source SARS-CoV-2 (PCR) Influenza Type A (PCR) Influenza Type B (PCR) RSV (PCR) 09/07/24 09/07/24 09/07/24 21:47 19:30 16:50 WBC RBC Hgb Hct MCV MCH MCHC RDW Plt Count MPV Immature Gran % Neutrophils % Lymphocytes % Monocytes % Eosinophils % Basophils % Nucleated RBC % Absolute Neutrophils Absolute Lymphocytes Absolute Monocytes Absolute Eosinophils Absolute Basophils ABG Sample Site ABG pH ABG pCO2 ABG pO2 ABG HCO3 ABG Total CO2 ABG O2 Saturation ABG Base Excess VBG pH VBG pCO2 VBG pO2 VBG HCO3 VBG Total CO2 VBG O2 Saturation VBG Base Excess Sodium 136 135 L 136 Potassium 3.8 3.7 3.9 Chloride 104 103 102 Carbon Dioxide 24.6 24.4 18.2 L Anion Gap 7.4 7.6 15.8 H BUN 22 H 24 H 26 H Creatinine 1.0 1.2 1.1 Est GFR (CKD-EPI 2020) 99.41 79.88 88.67 Glucose 148 H 175 H 258 H Calcium 8.3 L 8.3 L 8.7 Magnesium 1.7 1.7 1.7 Total Bilirubin AST ALT Alkaline Phosphatase Total Protein Albumin Urine Color Urine Clarity Urine pH Ur Specific [place] Urine Protein Urine Ketones Urine Blood Urine Nitrite Urine Bilirubin Urine Urobilinogen Ur Leukocyte Esterase Urine RBC Urine WBC Ur Epithelial Cells Urine Crystals Urine Bacteria Urine Casts Urine Mucus Urine Other Ur Culture Indicated? Urine Glucose COVID-19 Source SARS-CoV-2 (PCR) Influenza Type A (PCR) Influenza Type B (PCR) RSV (PCR) 09/07/24 09/07/24 09/07/24 16:00 14:35 12:49 WBC RBC Hgb Hct MCV MCH MCHC RDW Plt Count MPV Immature Gran % Neutrophils % Lymphocytes % Monocytes % Eosinophils % Basophils % Nucleated RBC % Absolute Neutrophils Absolute Lymphocytes Absolute Monocytes Absolute Eosinophils Absolute Basophils ABG Sample Site ABG pH ABG pCO2 ABG pO2 ABG HCO3 ABG Total CO2 ABG O2 Saturation ABG Base Excess VBG pH VBG pCO2 VBG pO2 VBG HCO3 VBG Total CO2 VBG O2 Saturation VBG Base Excess Sodium Cancelled 135 L Potassium Cancelled 4.4 Chloride Cancelled 99 Carbon Dioxide Cancelled 17.5 L Anion Gap Cancelled 18.5 H BUN Cancelled 29 H Creatinine Cancelled 1.2 Est GFR (CKD-EPI 2020) Cancelled 79.88 Glucose Cancelled 353 H Calcium Cancelled 9.0 Magnesium Cancelled 1.7 Total Bilirubin AST ALT Alkaline Phosphatase Total Protein Albumin Urine Color Yellow Urine Clarity Clear Urine pH 5.5 Ur Specific [place] 1.025 Urine Protein 100 H Urine Ketones 80 H Urine Blood Negative Urine Nitrite Negative Urine Bilirubin Small H Urine Urobilinogen 0.2 Ur Leukocyte Esterase Negative Urine RBC 0-2 Urine WBC 0-2 Ur Epithelial Cells Rare Urine Crystals Negative Urine Bacteria Rare Urine Casts 5-10 Fine Granular Urine Mucus Negative Urine Other Negative Ur Culture Indicated? No Urine Glucose 500 H COVID-19 Source SARS-CoV-2 (PCR) Influenza Type A (PCR) Influenza Type B (PCR) RSV (PCR) 09/07/24 09/07/24 11:45 11:27 WBC 4.27 L RBC 5.85 H Hgb 17.5 Hct 51.6 H MCV 88 MCH 29.9 MCHC 33.9 RDW 11.9 Plt Count 181 MPV 9.9 Immature Gran % 0.2 Neutrophils % 62.4 Lymphocytes % 27.4 Monocytes % 9.8 Eosinophils % 0.0 Basophils % 0.2 Nucleated RBC % 0.0 Absolute Neutrophils 2.66 Absolute Lymphocytes 1.17 L Absolute Monocytes 0.42 Absolute Eosinophils 0.00 Absolute Basophils 0.01 ABG Sample Site ABG pH ABG pCO2 ABG pO2 ABG HCO3 ABG Total CO2 ABG O2 Saturation ABG Base Excess VBG pH 7.20 L VBG pCO2 38 L VBG pO2 24 VBG HCO3 15 L VBG Total CO2 13 L VBG O2 Saturation 43 VBG Base Excess -13 L Sodium 131 L Potassium 4.6 Chloride 94 L Carbon Dioxide 15.7 L Anion Gap 21.3 H BUN 31 H Creatinine 1.6 H Est GFR (CKD-EPI 2020) 56.56 Glucose 376 H Calcium 9.8 Magnesium 1.9 Total Bilirubin 0.4 AST 28 ALT 69 H Alkaline Phosphatase 88 Total Protein 8.9 H Albumin 4.2 Urine Color Urine Clarity Urine pH Ur Specific [place] Urine Protein Urine Ketones Urine Blood Urine Nitrite Urine Bilirubin Urine Urobilinogen Ur Leukocyte Esterase Urine RBC Urine WBC Ur Epithelial Cells Urine Crystals Urine Bacteria Urine Casts Urine Mucus Urine Other Ur Culture Indicated? Urine Glucose COVID-19 Source Nasopharynx SARS-CoV-2 (PCR) Negative Influenza Type A (PCR) Positive A Influenza Type B (PCR) Negative RSV (PCR) Negative PFSH All Active Problems (Updated 09/07/24 @ 13:21 by Rosamaria Oneal MD) DKA (diabetic ketoacidosis) (Acute) CASSIDY (acute kidney injury) (Acute) Influenza A (Acute) Urinary retention (Acute) COVID (Acute) Social History Smoking/Tobacco Use Status: Never Smoking risk assessment performed?: Yes Alcohol Intake: never Drug use: Socially Substance use type: marijuana Housing: house Do you feel safe at home: Yes Do you feel safe in your relationship?: Yes Time Spent with Patient Time Spent with Patient: <45 minutes Time was spent: preparing to see the patient(eg.review tests), obtaining and/or reviewing separately otained hiistory, ordering medications,tests, procedures, referring, communicating with other health ambulatory care coordinator, indepentently interpreting results, counseling the patient and care coordination
--- NOTE | 2024-09-08 16:28 | PDOC.CMPRO ---
Date of service: 09/08/24 Time of Service: 16:28 Care Management Progress Note Progress Note Text Progress Note Text: Jam was admitted yesterday, and discharged early this morning, less than 24H later. DONAVON met with Jam briefly prior to his discharge to discuss a hospital follow up appointment, as he is not currently established with a local PCP. He reported that he receives his medication prescriptions from his [facility], but that office is over an hour away, and he wasn't able to make it to his last appointment, resulting in some of his prescriptions not being filled. DONAVON offered him a hospital follow up appointment with the business information analyst provider, [facility] ([facility] Jam was agreeable to this plan, and stated that he had considered getting connected to this office as it is convenient for him. CM contacted the chronic day care supervisor at the office, who will contact Jam to set up an appointment. CM will continue to follow. Social Determinants of Health Screening Social Determinants of Health last assessed: 09/08/24 Will the Patient Participate in the Screening?: Yes Do you worry about having a steady place to live?: no Problems where you live: no known problems In the past 12 months, have you had to go without electric, gas, oil or water in your home?: no Have you or anyone in your house had to go without enough food to eat?: no Has lack of transportation kept you from medical appointments or from doing things needed for daily living?: no Has anyone in your life made you feel unsafe or unsupported?: no How hard is it for you to pay for the very basics like food, housing, medical care, and heating? Would you say it is:: Not hard at all Do you want help finding or keeping work or a job?: I do not need or want help If for any reason you need help with day-to-day activities such as bathing, preparing meals, shopping, managing finances, etc., do you get the help you need?: I don?t need any help How often do you feel lonely or isolated from those around you?: Never Do you speak a language other than [place] at home?: No Does the patient want assistance with any of the above?: No
== END 2024-09-08 10:15 | disposition home or self-care (01) | DRG 638 ==
LOC: ER 13:21 → ICU 14:19
PROVIDERS: Admitting Provider Family Medicine; Emergency Provider Emergency Medicine; Responsible Provider Family Medicine; Visit Provider Family Medicine
DX: N17.9 Acute kidney failure, unspecified; J10.1 Influenza due to other identified influenza virus with other respiratory manifestations; R33.9 Retention of urine, unspecified; E86.0 Dehydration; E10.10 Type 1 diabetes mellitus with ketoacidosis without coma; F12.90 Cannabis use, unspecified, uncomplicated
CPT/HCPCS: 00123; 36415; 36416; 51701; 80048; 80053; 82805; 82962; 87637; 96365; 96366; 96375; 99285; 71046; 81003; 81015; 83735; 85025; 99223; 99239; J0131; J1815; J2405

== ENCOUNTER 2024-09-15 12:46 | Outpatient (REF) | payer MEDICAID, SELFPAY ==
[2024-09-15 15:04] LABS: Abs Immature Grans 0.03 10^3/uL (0.0-0.06); Absolute Basophil Count 0.01 10^3/uL (0.0-0.2); Absolute Eosinophil Count 0.06 10^3/uL (0.0-0.7); Absolute Lymphocyte Count 2.06 10^3/uL (1.2-3.4); Absolute Monocyte Count 0.42 10^3/uL (0.1-0.8); Basophils % 0.2 %; Eosinophils % 0.9 %; Immature Grans % 0.5 %; Lymphocytes % 31.8 %; MCH 29.6 pg (27.0-33.0); MCHC 34.1 % (32.0-36.0); MCV 87 fL (80-95); MPV 9.8 fL (8.0-11.0); Monocytes % 6.5 %; Neutrophils % 60.1 %; Platelet Count 281 10^3/uL (130-400); RBC 4.73 10^6/uL (4.36-5.78); RDW 11.8 % (11.8-14.1); RDW-SD 37.7 fL; WBC 6.48 10^3/uL (4.4-10.8)
[2024-09-15 15:09] LABS: Bacteria Moderate HPF (Negative); C & S Indicated? Yes; Casts Negative LPF (Negative); Crystals Negative HPF (Negative); Epithelial Cells Rare HPF (Negative); Mucus Negative (Negative); RBC 0-2 HPF (0-2)
[2024-09-15 15:58] LABS: Anion Gap 8.7 mmol/L (3-11); BUN 22 mg/dL (7-18); CO2 29.3 mmol/L (21.0-32.0); CREATININE 0.7 mg/dL (0.70-1.30); Calcium 9.6 mg/dL (8.5-10.1); Calculated LDL 78 mg/dL (<100); Chloride 101 mmol/L (98-107); Cholesterol 207 mg/dL (<200); Estimated GFR 121.71 (mL/min/1.73m2); Glucose 349 mg/dL (74-106); HDL Cholesterol 115 mg/dL (>or=40); Potassium 4.9 mmol/L (3.5-5.1); Sodium 139 mmol/L (136-145); TSH 1.44 uIU/mL (0.36-3.74); Triglyceride 74 mg/dL (<150); Vitamin D 25 Total 37 ng/mL (30-100)
[2024-09-15 16:12] LABS: COMMENT (LAB VIEW ONLY) 31.73 mg/dL; Microalb ug/mg Crea 27.7 ug/mg Cr
[2024-09-16 19:55] LABS: C-Peptide 0.4 ng/mL (1.1 - 4.4)
== END 2024-09-15 12:47 | disposition home or self-care (01) ==
LOC: NCHCN 12:46
PROVIDERS: Visit Provider Family Medicine
DX: E10.8 Type 1 diabetes mellitus with unspecified complications (principal); Z00.00 Encounter for general adult medical examination without abnormal findings
CPT/HCPCS: 80048; 80061; 82306; 87077; 81015; 82043; 82570; 84443; 84681; 85025; 87086

== ENCOUNTER 2024-09-25 10:18 | Emergency (ER) | payer MEDICAID, SELFPAY ==
--- NOTE | 2024-09-25 10:15 | DI.RAD_ITS ---
Exam(s) XR THUMB LT EXAM: XR THUMB LT CLINICAL HISTORY: left thumb injury. TECHNIQUE: 2D digital imaging was performed. COMPARISON: No exams were available for comparison FINDINGS: 3 views No evidence of fracture nor dislocation. There appears to be mild soft tissue swelling over the thum b metacarpophalangeal joint but no osseous findings at this level nor joint space abnormalities and t he subjacent sesamoid bones at this level appear intact. IMPRESSION: Mild soft tissue swelling over of the metacarpophalangeal joint of the thumb but no plain film osseou s findings. If there is clinical suspicion for ulnar collateral ligament injury then follow-up MRI would be recom mended DATA REPOSITORY: RADIATION DOSE DELIVERED:
[2024-09-25 10:23] VITALS: BP 130/87; PULSE 83; RESP 16; TEMP 36.9; O2SAT 99
--- NOTE | 2024-09-25 10:34 | ED.GENADUL_ITS ---
Discharge Plan Disposition Patient Disposition: Home Condition: Stable Discharge Details Chief Complaint: Orthopedic Clinical Impression: Contusion of left thumb, Hematoma, subungual, thumb, left Primary Care Provider: Unknown,Unknown ED Provider: Rui Casey Home Meds and New Rx's Prescriptions: No Action enalapril maleate 2.5 mg tablet 2.5 mg PO DAILY sulfamethoxazole-trimethoprim 800-160 mg tablet 1 tab PO Q12H Patient Comments: TAKE 1 TABLET BY MOUTH EVERY 12 HOURS FOR 7 DAYS (DME) catheter accessories, external Misc See Rx Instructions .Route Qty: 50 0RF Rx Instructions: As directed insulin detemir U-100 100 unit/mL (3 mL) insulin pen 12 unit subcut HS Qty: 15 3RF insulin lispro 100 unit/mL insulin pen 1 sliding scale dose subcut USEASDIRECTD Qty: 15 3RF insulin glargine [Lantus Solostar U-100 Insulin] 100 unit/mL (3 mL) insulin pen 10 unit subcut HS Qty: 15 3RF Discharge Instructions Instructions: Bruising Under the Nail Additional Instructions: X-ray imaging does not reveal any fracture A nail trephination was performed to alleviate the bleeding and bruising underneath your nail, this may continue to ooze a little bit as that bruise evacuates. Continue ice pack, Motrin and Tylenol as needed for pain HPI General Date/Time Provider Initiated Documentation: 09/25/24 10:28 . Limitations to Documentation: no limitations . Information obtained by: patient . HPI Narrative: 38-year-old gentleman with past medical history of diabetes presents for evaluation of left thumb injury. Patient reports that just prior to arrival he had his thumb smashed between a steel door and the steel door frame. Reports immediate onset of pain and swelling and blood underneath his fingernail. He took some naproxen just prior to arrival without much relief of the pain. Denies any numbness or tingling. Related Data Home Medications ?Medication ?Instructions ?Recorded ?Confirmed catheter accessories, external #50 ea 09/08/24 09/25/24 insulin detemir U-100 100 unit/mL 12 unit (0.12 mL) subcut HS #15 mL 09/08/24 09/25/24 (3 mL) subcutaneous pen insulin lispro 100 unit/mL 1 sliding scale dose subcut 09/08/24 09/25/24 subcutaneous pen USEASDIRECTD #15 mL insulin glargine 100 unit/mL (3 10 unit (0.1 mL) subcut HS #15 mL 09/09/24 09/25/24 mL) subcutaneous pen (Lantus Solostar U-100 Insulin) enalapril maleate 2.5 mg tablet 2.5 mg PO DAILY 09/22/24 09/25/24 sulfamethoxazole 800 1 tab PO Q12H 09/25/24 09/25/24 mg-trimethoprim 160 mg tablet Previous Rx's ?Medication ?Instructions ?Recorded catheter accessories, external #50 ea 09/08/24 insulin detemir U-100 100 unit/mL 12 unit (0.12 mL) subcut HS #15 mL 09/08/24 (3 mL) subcutaneous pen insulin lispro 100 unit/mL 1 sliding scale dose subcut 09/08/24 subcutaneous pen USEASDIRECTD #15 mL insulin glargine 100 unit/mL (3 10 unit (0.1 mL) subcut HS #15 mL 09/09/24 mL) subcutaneous pen (Lantus Solostar U-100 Insulin) Allergies Allergy/AdvReac Type Severity Reaction Status Date / Time No Known Allergies Allergy Verified 09/25/24 10:22 General Stated Complaint: Orthopedic HERO: 4 Exam Narrative Exam Narrative: Review of Systems: All systems reviewed & are unremarkable except as noted in HPI and below Well-developed, no acute distress NCAT Unlabored respiratory effort Left thumb with approximately 50% subungual hematoma, tenderness throughout the thumb without obvious deformity, there is full range of motion at each joint Course Vital Signs Vital signs: Vital Signs Temperature 36.9 C 09/25/24 10:23 Pulse 83 09/25/24 10:23 Respiratory Rate 16 09/25/24 10:23 Blood Pressure 130/87 09/25/24 10:23 Pulse Oximetry 99 09/25/24 10:23 Temperature 36.9 C 09/25/24 10:23 Temperature Source Oral 09/25/24 10:23 Pulse 83 09/25/24 10:23 Respiratory Rate 16 09/25/24 10:23 Blood Pressure 130/87 09/25/24 10:23 Blood Pressure Position Sitting 09/25/24 10:23 Pulse Oximetry 99 09/25/24 10:23 Oxygen Delivery Method Room Air 09/25/24 10:23 Oxygen Flow Rate 0 09/25/24 10:23 Pain Level 8 09/25/24 10:23 Procedure Nail Trephination Location (finger): left and thumb Method of drainage: nail cautery Procedure successful: Yes Patient tolerated procedure: well and no complications Medical Decision Making Emergent evaluation of left thumb injury. Initial differential includes subungual hematoma, soft tissue injury, fracture. No evidence of open fracture or dislocation on examination. Nail trephination was performed with significant relief of the subungual hematoma and improvement in pain. Patient provided Tylenol for pain control and x-ray imaging of the thumb was obtained. X-ray was independently interpreted, there is no acute fracture noted. Patient advised to continue ice pack and oral analgesia as needed. Quality:SDOH Health Related Social Needs: No Data to Display PFSH All Active Problems (Updated 09/25/24 @ 10:40 by Rui Casey MD) Hematoma, subungual, thumb, left (Acute) Contusion of left thumb (Acute) DKA (diabetic ketoacidosis) (Acute) CASSIDY (acute kidney injury) (Acute) Influenza A (Acute) Urinary retention (Acute) COVID (Acute) Medical History (Updated 09/25/24 @ 10:40 by Rui Casey MD) Neurogenic bladder Social History Smoking/Tobacco Use Status: Never Smoking risk assessment performed?: Yes Alcohol Intake: never Drug use: Socially Substance use type: marijuana Housing: house Do you feel safe at home: Yes Do you feel safe in your relationship?: Yes
[2024-09-25] MEDS: Acetaminophen 500 MG TAB 1000 MG PO (10:41)
--- NOTE | 2024-09-25 11:38 | DI.VRAD_ITS ---
PROCEDURE INFORMATION: Exam: XR Left Finger(s) Exam date and time: 09/25/2024 10:37 AM Age: 38 years old Clinical indication: Other: Left thumb injury TECHNIQUE: Imaging protocol: Radiologic exam of the left fingers. Views: Minimum 2 views. COMPARISON: No relevant prior studies available. FINDINGS: Bones/joints: Three views of the left thumb show no fracture or dislocation. No arthropathic change. Soft tissues: Minimal soft tissue swelling. IMPRESSION: No acute findings. Dictated and Authenticated by: Sergo Reid MD. Orderin Carmela Huffman MD
== END 2024-09-25 10:50 | disposition home or self-care (01) ==
PROVIDERS: Emergency Provider Emergency Medicine
DX: S60.012A Contusion of left thumb without damage to nail, initial encounter (principal); E11.9 Type 2 diabetes mellitus without complications; Z79.4 Long term (current) use of insulin; W23.0XXA Caught, crushed, jammed, or pinched between moving objects, initial encounter; Y93.89 Activity, other specified; Y92.89 Other specified places as the place of occurrence of the external cause; Y99.0 Civilian activity done for income or pay
CPT/HCPCS: 11740; 99283; 73140